=== PATIENT | male | born 1965 | race Caucasian/White ===

== ENCOUNTER 2019-12-14 09:03 | Outpatient (REF) | payer MEDICARE, MEDICAID, SELFPAY ==
[2019-12-14 10:09] LABS: MANUAL DIFF FLAG NO
[2019-12-14 10:16] LABS: Basophils Percent Auto 1.1 % (0-2); Eosinophils Absolute Auto 0.1 X10*3/uL (0.0-0.4); Eosinophils Percent Auto 1.6 % (0-4); Hemoglobin 12.8 g/dl (14.0-18.0); Imm Gran Abs Auto 0.01 X10*3/uL (0.00-0.03); Imm Gran Pct Auto 0.3 % (0.0-0.4); Mean Corpuscular HGB Conc 32.8 g/dl (31.0-36.0); Mean Corpuscular Hemoglobin 32.7 pg (27.0-33.0); Mean Corpuscular Volume 99.5 fL (80-98); Mean Platelet Volume 11.5 fL (9.4-12.4); Monocytes Absolute Auto 0.6 X10*3/uL (0.1-1.2); Neutrophils Absolute Auto 2.1 X10*3/uL (2.0-8.3); Platelet Count 141 X10*3/uL (160-400); Red Blood Count 3.92 X10*6/uL (4.60-5.80); Red Cell Distribution Width 12.1 % (11.0-16.0); White Blood Count 3.7 X10*3/uL (4.8-10.8)
[2019-12-14 11:07] LABS: Alanine Aminotransferase 95 U/L (0-40); Albumin Level 4.4 g/dL (3.5-5.0); Alkaline Phosphatase 69 U/L (39-117); Anion Gap 15 (12-20); Aspartate Amino Transferase 217 U/L (5-37); Bilirubin Total 0.7 mg/dL (0.0-1.0); Blood Urea Nitrogen 7 mg/dL (9-16); Calcium 9.2 mg/dL (8.4-10.2); Carbon Dioxide 32 mmol/L (22-29); Chloride 101 mmol/L (96-108); Cholesterol 287 mg/dL; Estimated Glomerular Filt Rate > 60; Glucose Random 87 mg/dL (60-115); HDL Cholesterol 114 mg/dL; LDL Cholesterol Calculated 156 mg/dl; Potassium 4.9 mmol/l (3.3-5.1); Sodium 143 mmol/L (135-145); Total Protein 7.9 g/dL (6.5-8.0); Triglycerides 85 mg/dL
== END 2019-12-14 09:04 | disposition home or self-care (01) ==
LOC: HO.LAB 09:03
PROVIDERS: PCP Internal Medicine; Visit Provider Internal Medicine
DX: E78.00 Pure hypercholesterolemia, unspecified (principal); F32.5 Major depressive disorder, single episode, in full remission; I10 Essential (primary) hypertension; R74.01 Elevation of levels of liver transaminase levels
CPT/HCPCS: 36415; 80053; 80061; 84443; 85025

== ENCOUNTER 2020-01-20 08:56 | Outpatient (REF) | payer MEDICARE, MEDICAID, SELFPAY | END 2020-01-20 08:57 | disposition home or self-care (01) | LOC: HO.LAB 08:56 | PROVIDERS: Visit Provider Internal Medicine | DX: Z20.828 Contact with and (suspected) exposure to other viral communicable diseases (principal) | CPT/HCPCS: C9803; U0003 ==

== ENCOUNTER 2020-05-09 12:12 | Outpatient (REF) | payer MEDICARE, MEDICAID, SELFPAY ==
[2020-05-09 13:10] LABS: MANUAL DIFF FLAG NO
[2020-05-09 13:17] LABS: Basophils Percent Auto 0.6 % (0-2); Eosinophils Absolute Auto 0.1 X10*3/uL (0.0-0.4); Eosinophils Percent Auto 1.1 % (0-4); Hematocrit 39.1 % (42-52); Hemoglobin 12.6 g/dl (14.0-18.0); Imm Gran Abs Auto 0.01 X10*3/uL (0.00-0.03); Imm Gran Pct Auto 0.1 % (0.0-0.4); Lymphocytes Absolute Auto 2.4 X10*3/uL (1.2-4.9); Lymphocytes Percent Auto 32.9 % (20-40); Mean Corpuscular HGB Conc 32.2 g/dl (31.0-36.0); Mean Corpuscular Hemoglobin 30.1 pg (27.0-33.0); Mean Corpuscular Volume 93.3 fL (80-98); Mean Platelet Volume 11.1 fL (9.4-12.4); Monocytes Absolute Auto 0.7 X10*3/uL (0.1-1.2); Monocytes Percent Auto 10.1 % (2-11); Neutrophils Absolute Auto 3.9 X10*3/uL (2.0-8.3); Neutrophils Percent Auto 55.2 % (45-73); Platelet Count 252 X10*3/uL (160-400); Red Blood Count 4.19 X10*6/uL (4.60-5.80); White Blood Count 7.1 X10*3/uL (4.8-10.8)
[2020-05-09 13:20] LABS: Prothrombin Time 12.3 SEC (10.8-13.0)
[2020-05-09 13:46] LABS: Alanine Aminotransferase 29 U/L (0-40); Albumin Level 4.3 g/dL (3.5-5.0); Alkaline Phosphatase 67 U/L (39-117); Aspartate Amino Transferase 40 U/L (5-37); Bilirubin Direct 0.3 mg/dL (0.0-0.5); Bilirubin Total 0.6 mg/dL (0.0-1.0)
[2020-05-09 13:47] LABS: Alanine Aminotransferase 31 U/L (0-40); Albumin Level 4.4 g/dL (3.5-5.0); Alkaline Phosphatase 67 U/L (39-117); Anion Gap 11 (12-20); Aspartate Amino Transferase 40 U/L (5-37); Bilirubin Total 0.6 mg/dL (0.0-1.0); Blood Urea Nitrogen 17 mg/dL (9-16); Calcium 9.9 mg/dL (8.4-10.2); Carbon Dioxide 33 mmol/L (22-29); Chloride 98 mmol/L (96-108); Cholesterol 181 mg/dL; Estimated Glomerular Filt Rate > 60; Glucose Random 105 mg/dL (60-115); HDL Cholesterol 63 mg/dL; LDL Cholesterol Calculated 103 mg/dl; Potassium 4.7 mmol/L (3.3-5.1); Sodium 137 mmol/L (135-145); Triglycerides 77 mg/dL
== END 2020-05-09 12:13 | disposition home or self-care (01) ==
LOC: HO.LAB 12:12
PROVIDERS: Absent Provider Internal Medicine; PCP Internal Medicine; Visit Provider Internal Medicine
DX: E78.00 Pure hypercholesterolemia, unspecified (principal); I10 Essential (primary) hypertension; R74.01 Elevation of levels of liver transaminase levels; K70.9 Alcoholic liver disease, unspecified; R74.8 Abnormal levels of other serum enzymes
CPT/HCPCS: 36415; 80053; 80061; 80076; 82248; 85025; 85610

== ENCOUNTER 2020-07-09 13:49 | Outpatient (REF) | payer MEDICARE, MEDICAID, SELFPAY ==
[2020-07-09 14:01] LABS: COVID-19 Test Positive (Negative)
== END 2020-07-09 13:50 | disposition home or self-care (01) ==
LOC: HO.LAB 13:49
PROVIDERS: Visit Provider Internal Medicine
DX: Z20.822 Contact with and (suspected) exposure to COVID-19 (principal)
CPT/HCPCS: 36415; 87635; C9803

== ENCOUNTER 2021-02-06 12:04 | Outpatient (REF) | payer MEDICARE, MEDICAID, SELFPAY ==
[2021-02-06 12:20] LABS: MANUAL DIFF FLAG NO
[2021-02-06 12:43] LABS: Basophils Absolute Auto 0.1 X10*3/uL (0.0-0.2); Basophils Percent Auto 0.9 % (0-2); Eosinophils Absolute Auto 0.1 X10*3/uL (0.0-0.4); Eosinophils Percent Auto 0.9 % (0-4); Hematocrit 39.3 % (42.0-52.0); Hemoglobin 12.5 g/dl (14.0-18.0); Imm Gran Abs Auto 0.02 X10*3/uL (0.00-0.03); Imm Gran Pct Auto 0.3 % (0.0-0.4); Lymphocytes Percent Auto 25.3 % (20-40); Mean Corpuscular HGB Conc 31.8 g/dl (31.0-36.0); Mean Corpuscular Hemoglobin 32.1 pg (27.0-33.0); Mean Corpuscular Volume 100.8 fL (80.0-98.0); Mean Platelet Volume 11.1 fL (9.4-12.4); Monocytes Absolute Auto 1.1 X10*3/uL (0.1-1.2); Monocytes Percent Auto 13.9 % (2-11); Neutrophils Absolute Auto 4.6 x10*3/uL (2.0-8.3); Neutrophils Percent Auto 58.7 % (45-73); Platelet Count 352 X10*3/uL (160-400); Red Cell Distribution Width 11.5 % (11.0-16.0); White Blood Count 7.8 X10*3/uL (4.8-10.8)
[2021-02-06 13:15] LABS: Alanine Aminotransferase 154 U/L (0-40); Albumin Level 4.1 g/dL (3.5-5.0); Alkaline Phosphatase 71 U/L (39-117); Anion Gap 13 (12-20); Aspartate Amino Transferase 194 U/L (5-37); Bilirubin Total 0.8 mg/dL (0.0-1.0); Blood Urea Nitrogen 22 mg/dL (9-16); Calcium 10.1 mg/dL (8.4-10.2); Carbon Dioxide 32 mmol/L (22-29); Chloride 98 mmol/L (96-108); Cholesterol 179 mg/dL; Estimated Glomerular Filt Rate > 60; Glucose Random 88 mg/dL (60-115); HDL Cholesterol 41 mg/dL; LDL Cholesterol Calculated 111 mg/dl; Potassium 4.7 mmol/L (3.3-5.1); Sodium 138 mmol/L (135-145); Total Protein 7.7 g/dL (6.5-8.0); Triglycerides 139 mg/dL
== END 2021-02-06 12:05 | disposition home or self-care (01) ==
LOC: HO.LAB 12:04
PROVIDERS: Internal Medicine; PCP Internal Medicine; Visit Provider Internal Medicine
DX: E78.00 Pure hypercholesterolemia, unspecified (principal); F10.11 Alcohol abuse, in remission; F32.5 Major depressive disorder, single episode, in full remission; I10 Essential (primary) hypertension; J30.89 Other allergic rhinitis
CPT/HCPCS: 36415; 80053; 80061; 85025

== ENCOUNTER 2022-02-10 09:35 | Outpatient (REF) | payer MEDICARE, MEDICAID, SELFPAY ==
[2022-02-10 10:49] LABS: MANUAL DIFF FLAG NO
[2022-02-10 10:54] LABS: Basophils Percent Auto 0.5 % (0-2); Eosinophils Absolute Auto 0.1 X10*3/uL (0.0-0.4); Eosinophils Percent Auto 1.3 % (0-4); Hemoglobin 11.5 g/dl (14.0-18.0); Imm Gran Abs Auto 0.02 X10*3/uL (0.00-0.03); Imm Gran Pct Auto 0.3 % (0.0-0.4); Lymphocytes Absolute Auto 2.5 X10*3/uL (1.2-4.9); Lymphocytes Percent Auto 31.4 % (20-40); Mean Corpuscular HGB Conc 32.9 g/dl (31.0-36.0); Mean Corpuscular Volume 100.6 fL (80.0-98.0); Mean Platelet Volume 12.7 fL (9.4-12.4); Monocytes Absolute Auto 1.1 X10*3/uL (0.1-1.2); Monocytes Percent Auto 13.4 % (2-11); Neutrophils Absolute Auto 4.2 x10*3/uL (2.0-8.3); Neutrophils Percent Auto 53.1 % (45-73); Platelet Count 254 X10*3/uL (160-400); Red Blood Count 3.48 X10*6/uL (4.60-5.80); Red Cell Distribution Width 11.9 % (11.0-16.0)
[2022-02-10 11:36] LABS: Alanine Aminotransferase 64 U/L (0-40); Alkaline Phosphatase 92 U/L (39-117); Anion Gap 11 (12-20); Aspartate Amino Transferase 164 U/L (5-37); Bilirubin Total 0.6 mg/dL (0.0-1.0); Blood Urea Nitrogen 7 mg/dL (9-16); Calcium 8.7 mg/dL (8.4-10.2); Carbon Dioxide 30 mmol/L (22-29); Chloride 101 mmol/L (96-108); Estimated Glomerular Filt Rate > 60; Glucose Random 71 mg/dL (60-115); Sodium 138 mmol/L (135-145); Total Protein 7.2 g/dL (6.5-8.0)
[2022-02-10 11:55] LABS: Folate 12.4 ng/mL (> or = 4.0); Vitamin B12 650 pg/mL (200-900)
== END 2022-02-10 09:36 | disposition home or self-care (01) ==
LOC: HO.10HDL 09:35
PROVIDERS: Visit Provider Internal Medicine
DX: E78.00 Pure hypercholesterolemia, unspecified (principal); F32.5 Major depressive disorder, single episode, in full remission; I10 Essential (primary) hypertension; L84 Corns and callosities; R74.01 Elevation of levels of liver transaminase levels
CPT/HCPCS: 36415; 80053; 82607; 82746; 85025

== ENCOUNTER 2022-05-21 09:22 | Outpatient (REF) | payer MEDICARE, MEDICAID, SELFPAY ==
--- NOTE | ~2022-05-21 | US_ITS ---
EXAMINATION: US COMPLETE ABDOMEN WITH LIVER ELASTOGRAPHY CLINICAL INFORMATION: Elevated LFTs. COMPARISON: None available. TECHNIQUE: Real-time imaging of the abdominal viscera. Noninvasive ultrasound liver fibrosis assessment is performed using Abraham ElastPQ point quantification shear wave elastography (2D-SWE) with a C5-2 MHz transducer. Multiple elastography samples are obtained. FINDINGS: PANCREAS: Normal. The visualized pancreatic head and body are normal in appearance. The remainder of the pancreas is obscured from visualization by the overlying bowel gas. ABDOMINAL AORTA: The proximal, middle, and distal aortic segments are normal in caliber. INFERIOR VENA CAVA: Visualized portions are normal. LIVER: The liver demonstrates normal size, scalloped contour and increased echogenicity. No focal lesion or intrahepatic biliary duct dilatation. The right lobe measures 16.2 cm in length. The left lobe measures 10.5 cm in length. Portal flow is hepatopedal. Shear wave liver elastography median stiffness is 1.76 m/s (reference: normal median stiffness is 1.3 m/s or less). IQR/median stiffness to assess sampling precision is 0.35 (reference: good quality data set is IQR/median stiffness of 0.15 or less). GALLBLADDER: The gallbladder is physiologically distended without evidence of stones, sludge, polyps or pericholecystic fluid. The gallbladder wall is slightly prominent measuring 0.21 cm. COMMON BILE DUCT: Normal in caliber measuring 0.2 cm in diameter. RIGHT KIDNEY: Normal. No hydronephrosis. No renal calculi or focal parenchymal lesions. The kidney measures 10.9 cm in maximum dimension. LEFT KIDNEY: Normal. No hydronephrosis. No renal calculi or focal parenchymal lesions. The kidney measures 11.2 cm in maximum dimension. SPLEEN: The spleen measures 13.1 cm in maximum dimension. There are small scattered tiny vascular lesions measuring 0.5 cm FREE FLUID: None. US/US abdomen comp w elastography IMPRESSION: 1. Hepatic steatosis with scalloped borders. No focal lesion. 2. Mild gallbladder wall thickening but no echogenic stones. 3. Tiny echogenic avascular lesion. 4. Liver elastography: Median liver stiffness measures 1.76 m/s corresponding to cACLD. REFERENCE: Society of Radiologists in Ultrasound Liver Stiffness Thresholds (2020): LIVER STIFFNESS THRESHOLDS: *Liver Stiffness equal or less than 1.3 m/s: High probability of being normal. *Liver Stiffness less than 1.7 m/s: In the absence of other known clinical signs, rules out compensated advanced chronic liver disease. *Liver Stiffness 1.7-2.1 m/s: Suggestive of compensated advanced chronic liver disease but need further test for confirmation. *Liver Stiffness over 2.1 m/s: Rules in compensated advanced chronic liver disease. *Liver Stiffness over 2.4 m/s: Suggestive of clinically significant portal hypertension. QUALITY OF DATA SET: *IQR/Median value equal or less than 0.15 implies a quality data set. *IQR/Median value over 0.15 implies a poor quality data set. SIGNIFICANT CHANGE FROM PRIOR EXAM: Significant change if liver stiffness measurement is 10% or greater from prior exam. OTHER CONSIDERATIONS: The stage of liver fibrosis may be overestimated in the setting of acute hepatitis, liver inflammation, elevated liver function tests, hepatic vascular congestion, obstructive cholestasis, non-fasting state, and infiltrative diseases such as amyloidosis and lymphoma. In some patients with NAFLD, the liver stiffness thresholds for compensated advanced chronic liver disease may be lower. In causes other than viral hepatitis and NAFLD, liver stiffness thresholds are not well established.
== END 2022-05-21 09:23 | disposition home or self-care (01) ==
LOC: HO.US 09:22
PROVIDERS: Visit Provider Internal Medicine
DX: R74.01 Elevation of levels of liver transaminase levels (principal)
CPT/HCPCS: 76705; 76981

== ENCOUNTER 2022-09-25 11:40 | Outpatient (REF) | payer MEDICARE, MEDICAID, SELFPAY ==
[2022-09-25 13:28] LABS: MANUAL DIFF FLAG NO
[2022-09-25 13:52] LABS: Basophils Absolute Auto 0.1 X10*3/uL (0.0-0.2); Eosinophils Absolute Auto 0.2 X10*3/uL (0.0-0.4); Eosinophils Percent Auto 3.4 % (0-4); Hematocrit 30.7 % (42.0-52.0); Hemoglobin 9.4 g/dl (14.0-18.0); Imm Gran Abs Auto 0.02 X10*3/uL (0.00-0.03); Imm Gran Pct Auto 0.3 % (0.0-0.4); Lymphocytes Absolute Auto 2.3 X10*3/uL (1.2-4.9); Lymphocytes Percent Auto 33.9 % (20-40); Mean Corpuscular HGB Conc 30.6 g/dl (31.0-36.0); Mean Corpuscular Volume 91.4 fL (80.0-98.0); Mean Platelet Volume 12.7 fL (9.4-12.4); Monocytes Percent Auto 14.3 % (2-11); Neutrophils Absolute Auto 3.2 x10*3/uL (2.0-8.3); Neutrophils Percent Auto 47.1 % (45-73); Platelet Count 315 X10*3/uL (160-400); Red Blood Count 3.36 X10*6/uL (4.60-5.80); Red Cell Distribution Width 16.2 % (11.0-16.0); White Blood Count 6.8 X10*3/uL (4.8-10.8)
[2022-09-25 14:10] LABS: Alanine Aminotransferase 32 U/L (0-40); Albumin Level 3.7 g/dL (3.5-5.0); Alkaline Phosphatase 82 U/L (39-117); Anion Gap 15 (12-20); Aspartate Amino Transferase 53 U/L (5-37); Bilirubin Total 0.5 mg/dL (0.0-1.0); Blood Urea Nitrogen 10 mg/dL (9-16); Calcium 9.5 mg/dL (8.4-10.2); Carbon Dioxide 25 mmol/L (22-29); Chloride 102 mmol/L (96-108); Estimated Glomerular Filt Rate > 60; Glucose Random 75 mg/dL (60-115); Potassium 4.7 mmol/L (3.3-5.1); Sodium 137 mmol/L (135-145); Total Protein 8.2 g/dL (6.5-8.0)
[2022-09-25 14:25] LABS: Ferritin 167 ng/mL (20-250)
== END 2022-09-25 11:41 | disposition home or self-care (01) ==
LOC: HO.10HDL 11:40
PROVIDERS: Visit Provider Internal Medicine
DX: D50.0 Iron deficiency anemia secondary to blood loss (chronic) (principal); E87.1 Hypo-osmolality and hyponatremia; I81 Portal vein thrombosis; I85.01 Esophageal varices with bleeding; K70.30 Alcoholic cirrhosis of liver without ascites
CPT/HCPCS: 36415; 80053; 82728; 85025

== ENCOUNTER 2022-12-23 11:34 | Outpatient (REF) | payer MEDICARE, MEDICAID, SELFPAY ==
[2022-12-23 13:39] LABS: MANUAL DIFF FLAG NO
[2022-12-23 13:47] LABS: Basophils Percent Auto 0.6 % (0-2); Eosinophils Absolute Auto 0.1 X10*3/uL (0.0-0.4); Eosinophils Percent Auto 1.3 % (0-4); Hematocrit 31.7 % (42.0-52.0); Hemoglobin 10.1 g/dl (14.0-18.0); Imm Gran Abs Auto 0.02 X10*3/uL (0.00-0.03); Imm Gran Pct Auto 0.3 % (0.0-0.4); Lymphocytes Absolute Auto 2.1 X10*3/uL (1.2-4.9); Lymphocytes Percent Auto 30.6 % (20-40); Mean Corpuscular HGB Conc 31.9 g/dl (31.0-36.0); Mean Corpuscular Hemoglobin 28.3 pg (27.0-33.0); Mean Corpuscular Volume 88.8 fL (80.0-98.0); Mean Platelet Volume 12.1 fL (9.4-12.4); Monocytes Absolute Auto 0.8 X10*3/uL (0.1-1.2); Monocytes Percent Auto 11.8 % (2-11); Neutrophils Absolute Auto 3.8 x10*3/uL (2.0-8.3); Neutrophils Percent Auto 55.4 % (45-73); Platelet Count 262 X10*3/uL (160-400); Red Blood Count 3.57 X10*6/uL (4.60-5.80); Red Cell Distribution Width 14.8 % (11.0-16.0); White Blood Count 6.8 X10*3/uL (4.8-10.8)
[2022-12-23 14:24] LABS: Alanine Aminotransferase 39 U/L (0-40); Albumin Level 3.8 g/dL (3.5-5.0); Alkaline Phosphatase 78 U/L (39-117); Anion Gap 14 (12-20); Aspartate Amino Transferase 63 U/L (5-37); Bilirubin Total 0.8 mg/dL (0.0-1.0); Blood Urea Nitrogen 9 mg/dL (9-16); Calcium 9.8 mg/dL (8.4-10.2); Carbon Dioxide 26 mmol/L (22-29); Chloride 105 mmol/L (96-108); Estimated Glomerular Filt Rate > 60; Glucose Random 107 mg/dL (60-115); Potassium 3.9 mmol/L (3.3-5.1); Sodium 141 mmol/L (135-145); Total Protein 8.3 g/dL (6.5-8.0)
== END 2022-12-23 11:35 | disposition home or self-care (01) ==
LOC: HO.10HDL 11:34
PROVIDERS: Visit Provider Internal Medicine
DX: D50.0 Iron deficiency anemia secondary to blood loss (chronic) (principal); F10.11 Alcohol abuse, in remission; I85.01 Esophageal varices with bleeding; K70.30 Alcoholic cirrhosis of liver without ascites
CPT/HCPCS: 36415; 80053; 85025

== ENCOUNTER 2023-01-28 10:42 | Emergency (ER) | payer MEDICARE, MEDICAID, SELFPAY ==
--- NOTE | ~2023-01-28 | XR_ITS ---
EXAMINATION: XR CERVICAL SPINE CLINICAL INFORMATION: Neck pain. COMPARISON: Cervical spine CT dated 07/06/2012. TECHNIQUE: 3 views of the cervical spine were obtained. FINDINGS: Straightening of the normal cervical lordosis which may be positional or related to muscular spasm. No acute fracture or subluxation. No loss of vertebral body or intervertebral disc height. Small anterior endplate osteophytes at C5-C6 and C6-C7, unchanged. Dystrophic ossification redemonstrated within the posterior soft tissues. Normal atlantoaxial alignment. No concerning lytic or blastic osseous lesion. Unremarkable prevertebral soft tissues. XR/XR cervical spine 3V IMPRESSION: 1. Straightening of the normal cervical lordosis which may be positional or related to muscular spasm. 2. Mild degenerative disc disease at C5-C6 and C6-C7, unchanged.
--- NOTE | 2023-01-28 11:04 | ED.GENADULT ---
HPI - General Adult General Chief complaint: Neck Pain/Injury Stated complaint: Neck & arm pain Time Seen by Provider: 01/28/23 11:33 Source: patient Mode of arrival: ambulatory Limitations: no limitations History of Present Illness HPI narrative: Patient is a 57-year-old male presenting to the emergency department with complaint of right lateral neck pain and shoulder pain for the past 3 days. States symptoms began after doing a significant amount of dry walling at his home. States pain is worse with movement. He has taken ibuprofen with little relief. Denies any numbness or tingling to his arm or hand. Denies any chest pain or shortness of breath, palpitations. Denies any fall or other injury. Denies headaches. Denies fevers. MD complaint: Neck and shoulder pain Onset (ago): day(s) Location: neck, right and upper extremity Radiation: non-radiation Severity: severe Quality: aching Pain Consistency: constant Relieving factors: none Exacerbating factors: movement Associated symptoms: denies other symptoms Treatments prior to arrival: NSAID Related Data Previous Rx's Medication Instructions Recorded cyclobenzaprine 5 mg tablet 5 mg PO TID PRN muscle spasm #10 01/28/23 tabs ibuprofen 600 mg tablet 600 mg PO Q6H PRN pain #20 tabs 01/28/23 lidocaine 5 % topical patch 1 patch topical DAILY #15 ea 01/28/23 Allergies Allergy/AdvReac Type Severity Reaction Status Date / Time No Known Allergies Allergy Verified 01/28/23 11:04 [employer] Allergy Unknown COUGH Uncoded 11/26/18 00:00 Review of Systems Review of Systems: As per MDM. Yes all other systems are reviewed and are negative Constitutional: Constitutional: Reports as per HPI [facility] Social History Social History Smoked in Last 30 Days: No Use of substances other than those prescribed or required for medical reasons: No Advance Directives: No Advance Directives Information Provided: No Physical Exam ED Vital Signs: Vital Signs - 24 hr 01/28/23 11:05 Temperature 98 F Pulse Rate 55 Respiratory Rate 19 Blood Pressure 145/85 H Pulse Oximetry 98 Oxygen Delivery Method Room Air BMI result Body Mass Index 29.0 Vital signs have been reviewed and appear to be correct. Blood pressure elevated. Heart rate normal. Respiratory rate normal. Temperature normal. Oxygen saturation normal. Const General: cooperative, healthy appearing and no acute distress Orientation/consciousness: oriented to person, oriented to place, oriented to time and patient oriented x3 Limitations: no limitations HENMT Head: Yes normocephalic and Yes atraumatic Ears: external ears normal General nose exam: Normal external nose present Face and sinus: Yes face symmetric Mouth: oropharynx normal and moist mucous membranes Throat: Yes uvula midline Eyes Pupils: Equal, round and reactive pupils present Neck Neck: Yes normal visual inspection, Yes full ROM, Yes no lymphadenopathy, Yes no meningeal signs, Yes trachea midline, Yes supple and No anterior neck swelling Resp Effort & Inspection: normal respiratory effort and able to speak in complete sentences Auscultation: clear to auscultation bilaterally Cardio Rate: regular rate Rhythm: regular rhythm Heart sounds: S1 normal heart sound present and S2 normal heart sound present GI Palpation (GI): Soft to palpation and nontender Auscultation: normoactive bowel sounds General: Yes no CVA tenderness Back/Spine/Pelvis Back: no CVA tenderness Cervical Spine: normal cervical lordosis, cervical ROM normal, cervical muscular tenderness (right lateral), pain with cervical ROM (Lateral rotation), No Cervical spine tenderness and No step off deformity Thoracic/Lumbar Spine: thoracic and lumbar spine normal to inspection, thoraco-lumbar ROM normal, No thoracic spinal tenderness and No lumbar spinal tenderness Skin General skin exam: elasticity normal and turgor normal Neuro General: oriented to person, oriented to place, oriented to time, patient oriented x3, moves all extremities, no meningeal signs, no focal motor deficits and CN's II-XI intact bilaterally Cranial nerves: Yes Equal, round and reactive pupils present Cognition (Neuro): normal cognition Extrem General: Yes full ROM, Yes no pedal edema and Yes no calf tenderness Right upper extremity: shoulder/upper arm Details: normal to inspection, tenderness (over trapezius), axillary nerve sensory function normal and normal ROM and wrist Details: radial pulse present Psych Mental Status: mental status grossly normal Affect: normal affect Thought process: Normal thought process present Course Course Course Narrative: This is an RME: Additional HPI, ROS, PE not included below will be deferred to primary provider. This is a [id number]-male, with a hx of ?, presenting to the emergency department with a complaint of neck and right arm pain x 3 days. Pt states that he has been doing dry wall over the last several days and has had worsening pain. Limited ROM of the neck secondary to pain. TTP over the paraspinous muscles and trapezius muscles Plan: XR c-spine ordered. Medical Decision Making Medical Decision Making [facility] Narrative: Patient is a 57-year-old male presenting to the emergency department with complaint of right lateral neck pain and shoulder pain for the past 3 days. On exam patient is awake, A+Ox3, VS WNL, afebrile, normal neurological exam without focal deficits, physical exam findings as above. Given reported symptoms and physical exam findings, initial differential includes cervical muscle strain, cervical radiculopathy, degenerative disease. No red flag findings concerning for cauda equina, spinal epidural abscess, cord compression. X-ray notable for mild degenerative disc disease, no other acute abnormalities. My interpretation is in agreement with the radiologist's interpretation. Given reported history and physical exam findings, will treat for cervical muscle strain with cyclobenzaprine, topical lidocaine patches, ibuprofen. Instructed patient to follow-up with primary care provider this week. Return precautions discussed at bedside. Patient verbalized understanding of and agreement with plan. Differential Diagnosis Differential Diagnoses: The differential diagnosis associated with the presentation includes As per [facility] Independent Interpretation I performed an independent interpretation of an: Plain X-Ray Interpretation: Mild DDD C5/6, C6/7 Radiology Impression Discussion of test interpretation with radiology: I have reviewed the radiologist's reading. Radiologist Impression: XR/XR cervical spine 3V IMPRESSION: 1. Straightening of the normal cervical lordosis which may be positional or related to muscular spasm. 2. Mild degenerative disc disease at C5-C6 and C6-C7, unchanged. External Record Review External record reviewed: Inpatient record, Office record and Outpatient record Prescription Management I considered prescription management with: Pain Medication and Other Discharge Plan Discharge Clinical Impression: Cervical muscle strain Patient Disposition: Home, Self-Care Instructions: Cervical Strain (DC) Additional Instructions: You were evaluated in the emergency department with complaint of neck pain. Your imaging did not show any evidence of a fracture or other concerning findings. Your pain is likely related to a muscle strain. We recommend taking 600mg ibuprofen or 650mg Tylenol. If necessary, you can alternate these medications every three hours. For example, at noon take Tylenol, then at 3:00 take ibuprofen, then at 6:00 take Tylenol, etc. You are also being prescribed a muscle relaxer which you can use up to every 8 hours as needed. You are also being prescribed topical lidocaine patches which you can wear for up to 12 hours in a 24 hour period, do not apply heat directly over the patches. You should follow up with your primary care provider as you may require physical therapy to improve your symptoms. Return to the emergency department if you develop worsening neck pain or stiffness, new weakness, numbness, or tingling to your arm, severe headaches, or any other concerning symptoms. Prescriptions: New cyclobenzaprine 5 mg tablet 5 mg PO TID PRN (Reason: muscle spasm) Qty: 10 0RF ibuprofen 600 mg tablet 600 mg PO Q6H PRN (Reason: pain) Qty: 20 0RF lidocaine 5 % adhesive patch,medicated 1 patch topical DAILY Qty: 15 0RF Rx Instructions: leave on most painful area for up to 12 hrs
[2023-01-28 11:05] VITALS: BP 145/85; PULSE 55; RESP 19; TEMP 36.6; O2SAT 98; BMI 29.0
== END 2023-01-28 13:25 | disposition home or self-care (01) ==
PROVIDERS: Emergency Provider Emergency Medicine; PCP Internal Medicine
DX: M54.2 Cervicalgia (principal); M25.511 Pain in right shoulder; Z79.899 Other long term (current) drug therapy
CPT/HCPCS: 72040; 99283; 99284

== ENCOUNTER 2023-04-08 13:56 | Outpatient (REF) | payer OTHER, MEDICAID, SELFPAY ==
[2023-04-08 14:24] LABS: MANUAL DIFF FLAG NO
[2023-04-08 14:26] LABS: Basophils Percent Auto 0.4 % (0-2); Eosinophils Absolute Auto 0.1 X10*3/uL (0.0-0.4); Eosinophils Percent Auto 1.8 % (0-4); Hematocrit 30.7 % (42.0-52.0); Hemoglobin 9.7 g/dl (14.0-18.0); Imm Gran Abs Auto 0.02 X10*3/uL (0.00-0.03); Imm Gran Pct Auto 0.3 % (0.0-0.4); Lymphocytes Absolute Auto 3.1 X10*3/uL (1.2-4.9); Lymphocytes Percent Auto 40.5 % (20-40); Mean Corpuscular HGB Conc 31.6 g/dl (31.0-36.0); Mean Corpuscular Hemoglobin 26.6 pg (27.0-33.0); Mean Corpuscular Volume 84.3 fL (80.0-98.0); Mean Platelet Volume 10.8 fL (9.4-12.4); Monocytes Percent Auto 12.5 % (2-11); Neutrophils Absolute Auto 3.5 x10*3/uL (2.0-8.3); Neutrophils Percent Auto 44.5 % (45-73); Platelet Count 252 X10*3/uL (160-400); Red Blood Count 3.64 X10*6/uL (4.60-5.80); Red Cell Distribution Width 13.1 % (11.0-16.0); White Blood Count 7.8 X10*3/uL (4.8-10.8)
[2023-04-08 14:31] LABS: INTERNATIONAL NORM RATIO 1.1 (0.9-1.1); Prothrombin Time 12.9 SEC (11.1-13.3)
[2023-04-08 14:36] LABS: Ammonia 76 umol/L (13-55)
[2023-04-08 14:43] LABS: Alanine Aminotransferase 29 U/L (0-40); Alkaline Phosphatase 87 U/L (39-117); Aspartate Amino Transferase 43 U/L (5-37); Bilirubin Direct 0.2 mg/dL (0.0-0.5); Bilirubin Total 0.3 mg/dL (0.0-1.0); Total Protein 8.2 g/dL (6.5-8.0)
[2023-04-08 14:50] LABS: Alanine Aminotransferase 29 U/L (0-40); Albumin Level 3.9 g/dL (3.5-5.0); Alkaline Phosphatase 88 U/L (39-117); Anion Gap 10 (12-20); Aspartate Amino Transferase 46 U/L (5-37); Bilirubin Total 0.3 mg/dL (0.0-1.0); Blood Urea Nitrogen 16 mg/dL (9-16); Calcium 9.7 mg/dL (8.4-10.2); Carbon Dioxide 30 mmol/L (22-29); Chloride 104 mmol/L (96-108); Cholesterol 146 mg/dL (<200); Estimated Glomerular Filt Rate > 60; Glucose Random 99 mg/dL (60-115); HDL Cholesterol 66 mg/dL (>40); LDL Cholesterol Calculated 57 mg/dL (<100); Potassium 4.6 mmol/L (3.3-5.1); Sodium 139 mmol/L (135-145); Total Protein 8.2 g/dL (6.5-8.0); Triglycerides 115 mg/dL (<150)
[2023-04-08 15:05] LABS: Ferritin 17 ng/mL (20-250)
[2023-04-08 15:22] LABS: Folate > 20.0 ng/mL (> or = 4.0); Prostate Specific Antigen Scr 0.25 ng/mL (<0.05-4.0); Vitamin B12 647 pg/mL (200-900)
[2023-04-09 13:39] LABS: Alpha Fetoprotein 3.1 ng/mL (<6.1)
== END 2023-04-08 13:57 | disposition home or self-care (01) ==
LOC: HO.LAB 13:56
PROVIDERS: Internal Medicine; PCP Internal Medicine; Referring Provider Internal Medicine; Visit Provider Internal Medicine
DX: Z12.5 Encounter for screening for malignant neoplasm of prostate (principal); R74.8 Abnormal levels of other serum enzymes; I85.11 Secondary esophageal varices with bleeding; K76.82 Hepatic encephalopathy; K70.30 Alcoholic cirrhosis of liver without ascites
CPT/HCPCS: 36415; 80053; 80061; 80076; 82105; 82140; 82607; 82728; 82746; 84153; 85025; 85610

== ENCOUNTER 2023-08-05 11:45 | Outpatient (REF) | payer MEDICARE, MEDICAID, SELFPAY ==
[2023-08-05 13:08] LABS: MANUAL DIFF FLAG NO
[2023-08-05 13:12] LABS: Basophils Percent Auto 0.7 % (0-2); Eosinophils Absolute Auto 0.2 X10*3/uL (0.0-0.4); Eosinophils Percent Auto 2.7 % (0-4); Hematocrit 30.2 % (42.0-52.0); Imm Gran Abs Auto 0.01 X10*3/uL (0.00-0.03); Imm Gran Pct Auto 0.2 % (0.0-0.4); Lymphocytes Percent Auto 35.3 % (20-40); Mean Corpuscular HGB Conc 33.1 g/dl (31.0-36.0); Mean Corpuscular Hemoglobin 28.2 pg (27.0-33.0); Mean Corpuscular Volume 85.3 fL (80.0-98.0); Mean Platelet Volume 12.5 fL (9.4-12.4); Monocytes Absolute Auto 0.6 X10*3/uL (0.1-1.2); Monocytes Percent Auto 9.9 % (2-11); Neutrophils Absolute Auto 2.8 x10*3/uL (2.0-8.3); Neutrophils Percent Auto 51.2 % (45-73); Platelet Count 160 X10*3/uL (160-400); Red Blood Count 3.54 X10*6/uL (4.60-5.80); Red Cell Distribution Width 13.9 % (11.0-16.0); White Blood Count 5.5 X10*3/uL (4.8-10.8)
== END 2023-08-05 11:46 | disposition home or self-care (01) ==
LOC: HO.10HDL 11:45
PROVIDERS: Visit Provider Internal Medicine
DX: Z00.01 Encounter for general adult medical examination with abnormal findings (principal); D50.0 Iron deficiency anemia secondary to blood loss (chronic); F10.21 Alcohol dependence, in remission; K70.30 Alcoholic cirrhosis of liver without ascites
CPT/HCPCS: 36415; 85025

== ENCOUNTER 2023-11-11 13:33 | Outpatient (REF) | payer MEDICARE, MEDICAID, SELFPAY ==
[2023-11-11 14:01] LABS: MANUAL DIFF FLAG NO
[2023-11-11 14:09] LABS: Basophils Percent Auto 0.4 % (0-2); Eosinophils Absolute Auto 0.2 X10*3/uL (0.0-0.4); Eosinophils Percent Auto 2.1 % (0-4); Hematocrit 36.3 % (42.0-52.0); Hemoglobin 12.1 g/dl (14.0-18.0); INTERNATIONAL NORM RATIO 1.1 (0.9-1.1); Imm Gran Abs Auto 0.01 X10*3/uL (0.00-0.03); Imm Gran Pct Auto 0.1 % (0.0-0.4); Lymphocytes Absolute Auto 2.6 X10*3/uL (1.2-4.9); Lymphocytes Percent Auto 34.9 % (20-40); Mean Corpuscular HGB Conc 33.3 g/dl (31.0-36.0); Mean Corpuscular Hemoglobin 29.2 pg (27.0-33.0); Mean Corpuscular Volume 87.7 fL (80.0-98.0); Mean Platelet Volume 11.3 fL (9.4-12.4); Monocytes Absolute Auto 0.8 X10*3/uL (0.1-1.2); Monocytes Percent Auto 10.5 % (2-11); Neutrophils Absolute Auto 3.9 x10*3/uL (2.0-8.3); Platelet Count 212 X10*3/uL (160-400); Red Blood Count 4.14 X10*6/uL (4.60-5.80); White Blood Count 7.5 X10*3/uL (4.8-10.8)
[2023-11-11 14:13] LABS: Ammonia 53 umol/L (13-55)
[2023-11-11 15:12] LABS: Alanine Aminotransferase 32 U/L (0-40); Alkaline Phosphatase 72 U/L (39-117); Aspartate Amino Transferase 41 U/L (5-37); Bilirubin Direct 0.2 mg/dL (0.0-0.5); Bilirubin Total 0.4 mg/dL (0.0-1.0); Total Protein 7.6 g/dL (6.5-8.0)
[2023-11-13 12:43] LABS: Alpha Fetoprotein 2.2 ng/mL (<6.1)
== END 2023-11-11 13:34 | disposition home or self-care (01) ==
LOC: HO.LAB 13:33
PROVIDERS: PCP Internal Medicine; Visit Provider Internal Medicine
DX: K70.9 Alcoholic liver disease, unspecified (principal)
CPT/HCPCS: 36415; 80076; 82105; 82140; 85025; 85610

== ENCOUNTER 2023-11-17 09:03 | Outpatient (REF) | payer MEDICARE, MEDICAID, SELFPAY ==
--- NOTE | ~2023-11-17 | US_ITS ---
EXAMINATION: US COMPLETE ABDOMEN WITH LIVER ELASTOGRAPHY CLINICAL INFORMATION: Alcoholic cirrhosis with ascites. COMPARISON: None available. TECHNIQUE: Real-time imaging of the abdominal viscera. Noninvasive ultrasound liver fibrosis assessment is performed using Abraham ElastPQ point quantification shear wave elastography (pSWE) with a C5-2 MHz transducer. Multiple elastography samples are obtained. FINDINGS: PANCREAS: Normal. The visualized pancreatic head and body are normal in appearance. The remainder of the pancreas is obscured from visualization by the overlying bowel gas. ABDOMINAL AORTA: The proximal, middle, and distal aortic segments are normal in caliber. INFERIOR VENA CAVA: Visualized portions are normal. LIVER: The liver is not enlarged. There is marked heterogeneity and increased echogenicity with nodular borders consistent with cirrhosis. No focal lesion or intrahepatic biliary duct dilatation. The right lobe measures 14.5 cm in length. The left lobe measures 10.4 cm in length. Portal flow is towards the liver (hepatopetal). Shear wave liver elastography median stiffness is 1.88 m/s (reference: normal median stiffness is 1.3 m/s or less). Previously this value was 1.76. IQR/median stiffness to assess sampling precision is 0.16 (reference: good quality data set is IQR/median stiffness of 0.15 or less). Previously this value was 0.35. GALLBLADDER: The gallbladder is physiologically distended without evidence of stones, sludge, polyps, wall thickening or pericholecystic fluid. COMMON BILE DUCT: Normal in caliber measuring 0.4 cm in diameter. RIGHT KIDNEY: Normal. No hydronephrosis. No renal calculi or focal parenchymal lesions. The kidney measures 11.6 cm in maximum dimension. LEFT KIDNEY: Normal. No hydronephrosis. No renal calculi or focal parenchymal lesions. The kidney measures 10.9 cm in maximum dimension. SPLEEN: The spleen is enlarged measuring 13.5 cm in maximum dimension. Multiple splenic rounded hyperechoic lesions are seen, possibly hemangiomas. FREE FLUID: None. US/US abdomen comp w elastography IMPRESSION: 1. Cirrhotic appearing liver. 2. Liver elastography: Although measurements appear consistent with compensated advanced chronic liver disease, there is statistical variability of the sampling which decreases accuracy. Liver stiffness measurement is without significant change from prior exam (change under 10%). REFERENCE: Society of Radiologists in Ultrasound Liver Stiffness Thresholds (2019): LIVER STIFFNESS THRESHOLDS: *Liver Stiffness equal or less than 1.3 m/s: High probability of being normal. *Liver Stiffness less than 1.7 m/s: In the absence of other known clinical signs, rules out compensated advanced chronic liver disease. *Liver Stiffness 1.7-2.1 m/s: Suggestive of compensated advanced chronic liver disease but need further test for confirmation. *Liver Stiffness over 2.1 m/s: Rules in compensated advanced chronic liver disease. *Liver Stiffness over 2.4 m/s: Suggestive of clinically significant portal hypertension. QUALITY OF DATA SET: *IQR/Median value equal or less than 0.15 implies a quality data set. *IQR/Median value over 0.15 implies a poor quality data set. SIGNIFICANT CHANGE FROM PRIOR EXAM: Significant change if liver stiffness measurement is 10% or greater from prior exam. OTHER CONSIDERATIONS: The stage of liver fibrosis may be overestimated in the setting of acute hepatitis, liver inflammation, elevated liver function tests, hepatic vascular congestion, obstructive cholestasis, non-fasting state, and infiltrative diseases such as amyloidosis and lymphoma. In some patients with NAFLD, the liver stiffness thresholds for compensated advanced chronic liver disease may be lower. In causes other than viral hepatitis and NAFLD, liver stiffness thresholds are not well established. Electronically signed by: Riaz Barajas MD 11/18/2023 06:00 PM EDT
== END 2023-11-17 09:04 | disposition home or self-care (01) ==
LOC: HO.US 09:03
PROVIDERS: PCP Internal Medicine; Visit Provider Internal Medicine
DX: K70.30 Alcoholic cirrhosis of liver without ascites (principal); K70.9 Alcoholic liver disease, unspecified
CPT/HCPCS: 76700; 76981

== ENCOUNTER 2024-02-09 12:36 | Outpatient (REF) | payer MEDICARE, MEDICAID, SELFPAY ==
[2024-02-09 13:06] LABS: MANUAL DIFF FLAG NO
[2024-02-09 13:14] LABS: Basophils Percent Auto 0.4 % (0-2); Eosinophils Absolute Auto 0.2 X10*3/uL (0.0-0.4); Eosinophils Percent Auto 2.6 % (0-4); Hematocrit 37.2 % (42.0-52.0); Hemoglobin 12.2 g/dl (14.0-18.0); Imm Gran Abs Auto 0.02 X10*3/uL (0.00-0.03); Imm Gran Pct Auto 0.3 % (0.0-0.4); Lymphocytes Absolute Auto 2.2 X10*3/uL (1.2-4.9); Lymphocytes Percent Auto 31.8 % (20-40); Mean Corpuscular HGB Conc 32.8 g/dl (31.0-36.0); Mean Corpuscular Hemoglobin 29.1 pg (27.0-33.0); Mean Corpuscular Volume 88.8 fL (80.0-98.0); Mean Platelet Volume 11.6 fL (9.4-12.4); Monocytes Absolute Auto 0.7 X10*3/uL (0.1-1.2); Monocytes Percent Auto 10.5 % (2-11); Neutrophils Absolute Auto 3.7 x10*3/uL (2.0-8.3); Neutrophils Percent Auto 54.4 % (45-73); Platelet Count 230 X10*3/uL (160-400); Red Blood Count 4.19 X10*6/uL (4.60-5.80); Red Cell Distribution Width 12.5 % (11.0-16.0); White Blood Count 6.9 X10*3/uL (4.8-10.8)
[2024-02-09 13:29] LABS: Alanine Aminotransferase 26 U/L (0-40); Albumin Level 3.9 g/dL (3.5-5.0); Alkaline Phosphatase 62 U/L (39-117); Anion Gap 12 (12-20); Aspartate Amino Transferase 41 U/L (5-37); Bilirubin Total 0.5 mg/dL (0.0-1.0); Blood Urea Nitrogen 10 mg/dL (9-16); Calcium 9.3 mg/dL (8.4-10.2); Carbon Dioxide 31 mmol/L (22-29); Chloride 104 mmol/L (96-108); Estimated Glomerular Filt Rate > 60; Glucose Random 96 mg/dL (60-115); Potassium 3.9 mmol/L (3.3-5.1); Sodium 143 mmol/L (135-145); Total Protein 7.5 g/dL (6.5-8.0)
--- OUTSIDE RECORDS SUMMARY | 2024-02-10 21:11 | XMS_ITS ---
Author Organization [facility] Address [address] [place] [address] Care Team Providers Care Agricultural Researcher Name Role Phone Ana Mercado Primary Care Provider Unavailab Kelechi Srivastava Unavailable [phone] ALLERGIES No Known Allergies RESULTS Component Value Reference Range Notes Prothrombin Time INR Reviewed date:04/08/2023 06:24:09 PM Interpretation: Performing Lab:[facility], [address] [place] [id number] Notes/Report: Prothrombin Time 12.9 11.1-13.3 SEC INTERNATIONAL NORM RATIO 1.1 0.9-1.1 INTERNATIONAL NORMALIZED RATIO (INR) REFERENCE RANGES Reference Range For patients not on anticoagulant therapy: 0.9 - 1.1 INR ranges for oral anticoagulant therapy: For prevention and treatment of venous thrombosis and pulmonary embolism: 2.0 - 3.0 For acute myocardial infarction with aspirin therapy: 2.0 - 3.0 For acute myocardial infarction without aspirin therapy: 3.0 - 4.0 For patients with mechanical prosthetic heart valves: 2.5 - 3.5 Ammonia Reviewed date:04/08/2023 06:24:01 PM Interpretation: Performing Lab:[address] [id number] Notes/Report: Ammonia 76 13-55 umol/L REASON FOR VISIT Patient presents today for a liver ds MEDICATIONS Medication SIG (Take, Route, Frequency, Duration) Notes Start Date End Date Status Losartan Potassium 100 MG TAKE 1 TABLET BY MOUTH EVERY DAY Oral for 90 Active Furosemide 40 MG TAKE 1 TABLET BY MERE TH DAILY Oral for 90 Active Valsartan 160 MG TAKE 2 TABLETS BY MO UTH EVERY DAY Oral for 30 Active Folic Acid 1 MG TAKE 1 TABLET BY MERE TH DAILY Oral for 90 Active B-1 100 MG TAKE 1 TABLET BY MERE TH ONCE DAILY Oral for 90 Active Propranolol HCl 20 MG TAKE 1 TABLET BY M OUTH TWICE DAILY Oral for 90 Active Rosuvastatin Calcium 10 MG TAKE 1 TABLET BY MOUTH EVERY DAY Oral for 90 Active Pantoprazole Sodium 40 MG TAKE 1 TABLET BY MOUTH TWICE DAILY Oral for 90 Active Acamprosate Calcium 333 MG TAKE 2 TABLET S BY MOUTH THREE TIMES DAILY Oral for 30 Active Valsartan-hydroCHLOROthiazid e 320-25 MG take 1 tablet by mouth once daily Oral for 90 Active Atorvastatin Calcium 20 MG take 1 tablet by mouth at bedtime Oral for 90 Active Naltrexone HCl 50 MG TAKE 1 TABLET BY MO UTH EVERY DAY Orally Once a day Active Spironolactone 50 MG TAKE 1 TABLET BY MO UTH DAILY Oral for 90 Active amLODIPine Besylate 5 MG TAKE 1 TABLET B Y MOUTH EVERY DAY Oral for 90 Active Sertraline HCl 100 MG take 1 tablet by m outh once daily Orally Once a day Active SOCIAL HISTORY Tobacco Use: Social History Observation Description Date Details (start date - stop date) Never Smoker NA - NA Sex Assigned At : Social History Observation Description Sex Assigned At Unknown Tobacco Use/Smoking Question Answer Notes Patient is a nonsmoker Alcohol Screen Question Answer Notes Did you have a drink containing alcohol in the p ast year? No Points 0 Interpretation Negative PROBLEMS Problem Type ICD Code Onset Dates Problem Status W/U Status Risk SNOMED Code Notes Problem Secondary esophageal varices with bleeding (I85.11) Active confirmed 20731440 Problem Hepatic encephalopathy (K76.82) Active confirmed 91077120 Problem Alcoholic cirrhosis of liver without ascites (K70.30) Active confirmed 231331574 VITAL SIGNS BMI 30.54 kg/m2 04/08/2023 Blood pressure systolic 00 mm Hg 04/08/19 24 Blood pressure diastolic 00 mm Hg 024 Height 67 in 04/08/2023 Temperature 97.8 degrees Fahrenheit 04/08/19 24 Weight 195 lbs 04/08/2023 Encounters Encounter Location Date Provider Diagnosis [facility] [address] [place] [address] 04/08/2023 Kelechi Evangelista Alcoholic liver dise ase K70.9 ; Elevated liver enzymes R74.8 ; Secondary esophageal varices with bleeding I85.11 ; Hepatic encephalopathy K76.82 and Alcoholic cirrhosis of liver without ascites K70.30 ASSESSMENTS Encounter Date Diagnosis Assessment Notes Treatment Notes Treatment Clinical Notes 04/08/2023 Alcoholic liver disease (ICD-10 - K70.9) 04/08/2023 Elevated liver enzymes (ICD-10 - R74.8) 04/08/2023 Secondary esophageal varices with bleeding (ICD-10 - I85.11) 04/08/2023 Hepatic encephalopathy (ICD-10 - K76.82) 04/08/2023 Alcoholic cirrhosis of liver without ascites (ICD-10 - K70.30) PLAN OF TREATMENT Pending Test Test Name Order Date LIVER PROFILE 04/08/2023 CBC w DIFF 04/08/2023 ALPHA-FETOPROTEIN,TUMOR MARKER Next Appt Details Follow Up: 2023, Roya n: Provider Name:Kelechi Evangelista , 11/09/2024 01:00:00 PM, [address], [address], [place], [address], Progress Notes * Examination Category Sub-Category Detail Notes General Examination GENERAL APPEARANCE: pleasant , well nourished, well developed, in no acute distress HEAD: EYES: sclera non-icteric EARS: NOSE: THROAT: NECK/THYROID: no cervical lymphade nopathy, neck supple HEART: S1, S2 normal CHEST: LUNGS: clear to auscultatio n bilaterally ABDOMEN: normal bowel sounds, no guarding or rigidity, no guarding or rigidity, no masses palpable, soft, nontender, nondistended NEUROLOGIC: alert and oriented SKIN: nonjaundiced, no spi fernanda angiomata EXTREMITIES: no edema PERIPHERAL PULSES: BACK: BREASTS: MUSCULOSKELETAL: MALE GENITOURINARY: LYMPH NODES: RECTAL EXAM: FEMALE GENITOURINARY: ORAL CAVITY: mucosa moist
--- OUTSIDE RECORDS SUMMARY | 2024-02-10 21:11 | XMS_ITS ---
Author Organization [facility] Address [address] [place] [address] Care Team Providers Care Financial Sales Associate Name Role Phone Ana Mercado Primary Care Provider Unavailab Kelechi Srivastava Unavailable [phone] ALLERGIES No Known Allergies RESULTS Component Value Reference Range Notes Prothrombin Time INR Reviewed date:11/11/2023 05:24:02 PM Interpretation: Performing Lab:[facility], [address] [place] [phone] Notes/Report: Prothrombin Time 13.0 11.1-13.3 SEC INTERNATIONAL NORM RATIO 1.1 0.9-1.1 [...] heart valves: 2.5 - 3.5 Ammonia Reviewed date:11/11/2023 05:22:00 PM Interpretation: Performing Lab:[facility], [address] [place] [phone] Notes/Report: Ammonia 53 13-55 umol/L US abdomen comp w elastograp hy Reviewed date:11/22/2023 08:08:11 PM Interpretation: Performing Lab: Notes/Report: [address] [address] Ultrasound Report Signed Patient: Michelet Ahuja MR#: [id number] : 1965 Acct:[id number] Age/Sex: 58 / M ADM Date: 11/17/23 Loc: HO.US Attending Dr: Kelechi Evangelista MD Ordering Physician: Kelechi Evangelista MD Date of Service: 11/17/23 Procedure(s): US abdomen comp w elastography Accession Number(s): [id number] cc: Ana Mercado MD; Kelechi Evangelista MD EXAMINATION: US COMPLETE ABDOMEN WITH LIVER ELASTOGRAPHY CLINICAL INFORMATION: Alcoholic cirrhosis with ascites. COMPARISON: None available. TECHNIQUE: Real-time imaging of the abdominal viscera. Noninvasive ultrasound liver fibrosis assessment is performed using Abraham ElastPQ point quantification shear wave elastography (pSWE) with a C5-2 MHz transducer. Multiple elastography samples are obtained. FINDINGS: PANCREAS: Normal. The visualized pancreatic head and body are normal in appearance. The remainder of the pancreas is obscured from visualization by the overlying bowel gas. ABDOMINAL AORTA: The proximal, middle, and distal aortic segments are normal in caliber. INFERIOR VENA CAVA: Visualized portions are normal. LIVER: The liver is not enlarged. There is marked heterogeneity and increased echogenicity with nodular borders consistent with cirrhosis. No focal lesion or intrahepatic biliary duct dilatation. The right lobe measures 14.5 cm in length. The left lobe measures 10.4 cm in length. Portal flow is towards the liver (hepatopetal). Shear wave liver elastography median stiffness is 1.88 m/s (reference: normal median stiffness is 1.3 m/s or less). Previously this value was 1.76. IQR/median stiffness to assess sampling precision is 0.16 (reference: good quality data set is IQR/median stiffness of 0.15 or less). Previously this value was 0.35. GALLBLADDER: The gallbladder is physiologically distended without evidence of stones, sludge, polyps, wall thickening or pericholecystic fluid. COMMON BILE DUCT: Normal in caliber measuring 0.4 cm in diameter. RIGHT KIDNEY: Normal. No hydronephrosis. No renal calculi or focal parenchymal lesions. The kidney measures 11.6 cm in maximum dimension. LEFT KIDNEY: Normal. No hydronephrosis. No renal calculi or focal parenchymal lesions. The kidney measures 10.9 cm in maximum dimension. SPLEEN: The spleen is enlarged measuring 13.5 cm in maximum dimension. Multiple splenic rounded hyperechoic lesions are seen, possibly hemangiomas. FREE FLUID: None. US/US abdomen comp w elastography IMPRESSION: 1. Cirrhotic appearing liver. 2. Liver elastography: Although measurements appear consistent with compensated advanced chronic liver disease, there is statistical variability of the sampling which decreases accuracy. Liver stiffness measurement is without significant change from prior exam (change under 10%). REFERENCE: Society of Radiologists in Ultrasound Liver Stiffness Thresholds (2020): LIVER STIFFNESS THRESHOLDS: *Liver Stiffness equal or less than 1.3 m/s: High probability of being normal. *Liver Stiffness less than 1.7 m/s: In the absence of other known clinical signs, rules out compensated advanced chronic liver disease. *Liver Stiffness 1.7-2.1 m/s: Suggestive of compensated advanced chronic liver disease but need further test for confirmation. *Liver Stiffness over 2.1 m/s: Rules in compensated advanced chronic liver disease. *Liver Stiffness over 2.4 m/s: Suggestive of clinically significant portal hypertension. QUALITY OF DATA SET: *IQR/Median value equal or less than 0.15 implies a quality data set. *IQR/Median value over 0.15 implies a poor quality data set. SIGNIFICANT CHANGE FROM PRIOR EXAM: Significant change if liver stiffness measurement is 10% or greater from prior exam. OTHER CONSIDERATIONS: The stage of liver fibrosis may be overestimated in the setting of acute hepatitis, liver inflammation, elevated liver function tests, hepatic vascular congestion, obstructive cholestasis, non-fasting state, and infiltrative diseases such as amyloidosis and lymphoma. In some patients with NAFLD, the liver stiffness thresholds for compensated advanced chronic liver disease may be lower. In causes other than viral hepatitis and NAFLD, liver stiffness thresholds are not well established. Electronically signed by: Riaz Barajas MD 11/18/2023 06:00 PM EDT Dictated By: Riaz Barajas MD Signed By: <Electronically signed by Riaz Barajas MD in OV> 11/18/23 1800 DD/ 0930 TD/TT: 11/17/23 1000 Clinical Provider Trainer: LYLY REASON FOR VISIT Patient presents today for alcoholic liver disease MEDICATIONS Medication SIG (Take, Route, Frequency, Duration) Notes Start Date End Date Status Sertraline HCl 100 MG take 1 tablet by m outh once daily Orally Once a day Active Furosemide 40 MG TAKE 1 TABLET BY MERE TH DAILY Oral for 90 Active Losartan Potassium 100 MG TAKE 1 TABLET BY MOUTH EVERY DAY Oral for 90 Active Folic Acid 1 MG TAKE 1 TABLET BY MERE TH DAILY Oral for 90 Active Valsartan 160 MG TAKE 2 TABLETS BY MO UTH EVERY DAY Oral for 30 Active Pantoprazole Sodium 40 MG TAKE 1 TABLET BY MOUTH TWICE DAILY Oral for 90 Active Acamprosate Calcium 333 MG TAKE 2 TABLET S BY MOUTH THREE TIMES DAILY Oral for 30 Active Propranolol HCl 20 MG TAKE 1 TABLET BY M OUTH TWICE DAILY Oral for 90 Active Rosuvastatin Calcium 10 MG TAKE 1 TABLET BY MOUTH EVERY DAY Oral for 90 Active B-1 100 MG TAKE 1 TABLET BY MERE TH ONCE DAILY Oral for 90 Active Valsartan-hydroCHLOROthiazid e 320-25 MG take 1 tablet by mouth once daily Oral for 90 Active Atorvastatin Calcium 20 MG take 1 tablet by mouth at bedtime Oral for 90 Active amLODIPine Besylate 5 MG TAKE 1 TABLET B Y MOUTH EVERY DAY Oral for 90 Active Naltrexone HCl 50 MG TAKE 1 TABLET BY MO UTH EVERY DAY Orally Once a day Active Spironolactone 50 MG TAKE 1 TABLET BY MO UTH DAILY Oral for 90 Active SOCIAL HISTORY Tobacco Use: Social History [...] ast year? No Points 0 Interpretation Negative VITAL SIGNS BMI 31.54 kg/m2 11/11/2023 Blood pressure systolic 000 mm Hg 11/11/19 24 Blood pressure diastolic 00 mm Hg 024 Height 67 in 11/11/2023 Temperature 97.7 degrees Fahrenheit 11/11/19 24 Weight 201 lb 6 oz lbs 11/11/2023 Encounters Encounter Location Date Provider Diagnosis [facility] [address] [place] [address] 11/11/2023 Kelechi Evangelista Alcoholic liver disease K70.9 and Alcoholic cirrhosis of liver without ascites K70.30 ASSESSMENTS Encounter Date Diagnosis Assessment Notes Treatment Notes Treatment Clinical Notes 11/11/2023 Alcoholic liver disease (ICD-10 - K70.9) Keep avoiding alcohol completely, watch diet, and lose some weight 11/11/2023 Alcoholic cirrhosis of liver without ascites (ICD-10 - K70.30) PLAN OF TREATMENT Treatment Notes Assessment Notes Alcoholic liver disease Keep avoiding al cohol completely, watch diet, and lose some weight Pending Test Test Name Order Date LIVER PROFILE 11/11/2023 CBC w DIFF 11/11/2023 ALPHA-FETOPROTEIN,TUMOR MARKER 4 Next Appt Details Follow Up: 1 Year, Reason: Provider Name:Kelechi Evangelista , 11/09/2024 01:00:00 PM, [address], [address], [place], [address], Progress Notes * Examination Category Sub-Category Detail [...]
--- OUTSIDE RECORDS SUMMARY | 2024-02-10 21:11 | XMS_ITS | Patient Health Record ---
Author Organization [facility] Address [address] [place] [address] Care Team Providers Care Marble Finisher Name Role Phone Ana Mercado Primary Care Provider Unavailab Kelechi Srivastava Unavailable [phone] ALLERGIES No Known Allergies RESULTS Component Value Reference Range Notes Prothrombin Time INR Reviewed date:04/08/2023 06:24:09 PM Interpretation: Performing Lab:[facility], [address] [place] [phone] Notes/Report: Prothrombin Time 12.9 11.1-13.3 SEC INTERNATIONAL [...] Ammonia Reviewed date:04/08/2023 06:24:01 PM Interpretation: Performing Lab:[facility], [address] [place] [phone] Notes/Report: Ammonia 76 13-55 umol/L Complete Blood Count Auto Di ff Reviewed date:04/08/2023 06:24:44 PM Interpretation: Performing Lab:[facility], [address] [place] [phone] Notes/Report: White Blood Count 7.8 4.8-10.8 X10*3/uL Red Blood Count 3.64 4.60-5.80 X10*6/uL Hemoglobin 9.7 14.0-18.0 g/dl Hematocrit 30.7 42.0-52.0 % Mean Corpuscular Volume 84.3 80.0-98.0 fL Mean Corpuscular Hemoglobin 26.6 27.0-33.0 pg Mean Corpuscular HGB Conc 31.6 31.0-36.0 g/dl Red Cell Distribution Width 13.1 11.0-16.0 % Platelet Count 252 160-400 X10*3/uL Mean Platelet Volume 10.8 9.4-12.4 fL Neutrophils Percent Auto 44.5 45-73 % Imm Gran Pct Auto 0.3 0.0-0.4 % Lymphocytes Percent Auto 40.5 20-40 % Monocytes Percent Auto 12.5 2-11 % Eosinophils Percent Auto 1.8 0-4 % Basophils Percent Auto 0.4 0-2 % NRBC Pct Auto 0.0 0.0-0.2 /100WBC Neutrophils Absolute Auto 3.5 2.0-8.3 x10*3/u L Imm Gran Abs Auto 0.02 0.00-0.03 X10*3/uL Lymphocytes Absolute Auto 3.1 1.2-4.9 X10*3/u L Monocytes Absolute Auto 1.0 0.1-1.2 X10*3/uL Eosinophils Absolute Auto 0.1 0.0-0.4 X10*3/u L Basophils Absolute Auto 0.0 0.0-0.2 X10*3/uL NRBC Abs Auto 0.000 0.0-0.012 X10*3/uL Liver Panel Reviewed date:04/08/2023 06:24:23 PM Interpretation: Performing Lab:[facility], [address] [place] [phone] Notes/Report: Bilirubin Total 0.3 0.0-1.0 mg/dL Bilirubin Direct 0.2 0.0-0.5 mg/dL Aspartate Amino Transferase 43 5-37 U/L Alanine Aminotransferase 29 0-40 U/L Total Protein 8.2 6.5-8.0 g/dL Albumin Level 4.0 3.5-5.0 g/dL Alkaline Phosphatase 87 39-117 U/L Alpha Fetoprotein Reviewed date:04/09/2023 07:37:16 PM Interpretation: Performing Lab:[facility], [address] [place] [phone] Notes/Report: Alpha Fetoprotein 3.1 <6.1 ng/mL This test was performed using the Glenda Waverly chemiluminescent method. Values obtained from different assay methods cannot be used interchangeably. AFP levels, regardless of value, should not be interpreted as absolute evidence of the presence or absence of disease. THIS TEST WAS PERFORMED AT: [facility] [address] [place] [phone] TIFFANIE GARCIA MD Prothrombin Time INR Reviewed date:11/11/2023 05:24:02 PM Interpretation: Performing Lab:[facility], [address] [place] [phone] Notes/Report: Prothrombin Time 13.0 11.1-13.3 SEC INTERNATIONAL [...] Ammonia Reviewed date:11/11/2023 05:22:00 PM Interpretation: Performing Lab:[facility], [address] [place] [phone] Notes/Report: Ammonia 53 13-55 umol/L US abdomen comp w elastograp hy Reviewed date:11/22/2023 08:08:11 PM Interpretation: Performing Lab: Notes/Report: [address] [address] Ultrasound Report Signed Patient: Michelet Ahuja MR#: [id number] : 1965 Acct:[id number] Age/Sex: 58 / M ADM Date: 11/17/23 Loc: HO.US Attending Dr: Kelechi Evangelista MD Ordering Physician: Kelechi Evangelista MD Date of Service: 11/17/23 Procedure(s): US abdomen comp w elastography Accession Number(s): [id number] cc: Ana Mercado MD; Kelechi Evangelista MD [...] 11/18/23 1800 DD/ 0930 TD/TT: 11/17/23 1000 Escrow Clerk: LYLY Complete Blood Count Auto Di ff Reviewed date:11/11/2023 05:23:40 PM Interpretation: Performing Lab:[facility], [address] [place] [phone] Notes/Report: White Blood Count 7.5 4.8-10.8 X10*3/uL Red Blood Count 4.14 4.60-5.80 X10*6/uL Hemoglobin 12.1 14.0-18.0 g/dl Hematocrit 36.3 42.0-52.0 % Mean Corpuscular Volume 87.7 80.0-98.0 fL Mean Corpuscular Hemoglobin 29.2 27.0-33.0 pg Mean Corpuscular HGB Conc 33.3 31.0-36.0 g/dl Red Cell Distribution Width 13.0 11.0-16.0 % Platelet Count 212 160-400 X10*3/uL Mean Platelet Volume 11.3 9.4-12.4 fL Neutrophils Percent Auto 52.0 45-73 % Imm Gran Pct Auto 0.1 0.0-0.4 % Lymphocytes Percent Auto 34.9 20-40 % Monocytes Percent Auto 10.5 2-11 % Eosinophils Percent Auto 2.1 0-4 % Basophils Percent Auto 0.4 0-2 % NRBC Pct Auto 0.0 0.0-0.2 /100WBC Neutrophils Absolute Auto 3.9 2.0-8.3 x10*3/u L Imm Gran Abs Auto 0.01 0.00-0.03 X10*3/uL Lymphocytes Absolute Auto 2.6 1.2-4.9 X10*3/u L Monocytes Absolute Auto 0.8 0.1-1.2 X10*3/uL Eosinophils Absolute Auto 0.2 0.0-0.4 X10*3/u L Basophils Absolute Auto 0.0 0.0-0.2 X10*3/uL NRBC Abs Auto 0.000 0.0-0.012 X10*3/uL Liver Panel Reviewed date:11/11/2023 05:23:55 PM Interpretation: Performing Lab:[address] [address] Notes/Report: Bilirubin Total 0.4 0.0-1.0 mg/dL Bilirubin Direct 0.2 0.0-0.5 mg/dL Aspartate Amino Transferase 41 5-37 U/L Alanine Aminotransferase 32 0-40 U/L Total Protein 7.6 6.5-8.0 g/dL Albumin Level 4.0 3.5-5.0 g/dL Alkaline Phosphatase 72 39-117 U/L Alpha Fetoprotein Reviewed date:11/14/2023 02:06:14 PM Interpretation: Performing Lab:[address] [address] Notes/Report: Alpha Fetoprotein 2.2 <6.1 ng/mL This test was performed using the Glenda Waverly chemiluminescent method. Values obtained from different assay methods cannot be used interchangeably. AFP levels, regardless of value, should not be interpreted as absolute evidence of the presence or absence of disease. THIS TEST WAS PERFORMED AT: [facility] [address] [place] [phone] TIFFANIE GARCIA MD REASON FOR REFERRAL No Information MEDICATIONS Medication SIG (Take, Route, Frequency, Duration) Notes Start Date End Date Status Pantoprazole Sodium 40 MG TAKE 1 TABLET [...] TH ONCE DAILY Oral for 90 Active Sertraline HCl 100 MG take 1 tablet by m outh once daily Orally Once a day Active Furosemide 40 MG TAKE 1 TABLET BY MERE TH DAILY Oral for 90 Active Valsartan-hydroCHLOROthiazid e 320-25 MG take 1 tablet by mouth once daily Oral for 90 Active Losartan Potassium 100 MG TAKE 1 TABLET BY MOUTH EVERY DAY Oral for 90 Active Atorvastatin Calcium 20 MG take 1 tablet by mouth at bedtime Oral for 90 Active Folic Acid 1 MG TAKE 1 TABLET BY MERE TH DAILY Oral for 90 Active amLODIPine Besylate 5 MG TAKE 1 TABLET B Y MOUTH EVERY DAY Oral for 90 Active Valsartan 160 MG TAKE 2 TABLETS BY MO UTH EVERY DAY Oral for 30 Active Naltrexone HCl 50 MG TAKE 1 TABLET BY MO UTH EVERY DAY Orally Once a day Active Spironolactone 50 MG TAKE 1 TABLET BY MO UTH DAILY Oral for 90 Active IMMUNIZATIONS Vaccine Route Administration Date Status Comme nts Influenza Unknown 11/10/2018 Administered Influenza Unknown 12/23/2022 Administered Influenza Unknown 08/11/2018 Refused SOCIAL HISTORY Tobacco Use: Social History Observation [...] W/U Status Risk SNOMED Code Notes Problem Alcoholic liver disease (K70.9) Active confirmed 32861086 Problem Encounter for screening for malignant neoplasm of colon (Z12.11) Active confirmed 942126109 Problem Elevated liver enzymes (R74.8) Active confirmed 868036830 Problem Hypertension, unspecified type (I10) Active confirmed 83884652 Problem Iron excess (E83.19) Active confirmed 86130009 Problem Secondary esophageal varices with bleeding (I85.11) Active confirmed 93040411 Problem Hepatic encephalopathy (K76.82) Active confirmed 47120767 Problem Alcoholic cirrhosis of liver without ascites (K70.30) Active confirmed 973725690 VITAL SIGNS Temperature 97.7 degrees Fahrenheit 11/11/2023 Blood pressure diastolic 00 mm Hg 11/11/2023 Height 67 in 11/11/2023 Blood pressure systolic 000 mm Hg 11/11/2023 Weight 201 lb 6 oz lbs 11/11/2023 BMI 31.54 kg/m2 11/11/2023 Encounters Encounter Location Date Provider Diagnosis [facility] [address] [place] [phone] 04/08/2023 Kelechi Evangelista Alcoholic liver dise ase K70.9 ; Elevated liver enzymes R74.8 ; Secondary esophageal varices with bleeding I85.11 ; Hepatic encephalopathy K76.82 and Alcoholic cirrhosis of liver without ascites K70.30 [facility] [address] [place] [phone] 11/11/2023 Kelechi Evangelista Alcoholic liver dise ase K70.9 and Alcoholic cirrhosis of liver without ascites K70.30 ASSESSMENTS Encounter Date Diagnosis Assessment Notes Treatment Notes Treatment Clinical Notes 04/08/2023 Elevated liver enzymes (ICD-10 - R74.8) 04/08/2023 Alcoholic liver disease (ICD-10 - K70.9) 11/11/2023 Alcoholic cirrhosis of liver without ascites (ICD-10 - K70.30) 11/11/2023 Alcoholic liver disease (ICD-10 - K70.9) Keep avoiding alcohol completely, watch diet, and lose some weight 04/08/2023 Secondary esophageal varices with bleeding (ICD-10 - I85.11) 04/08/2023 Hepatic encephalopathy (ICD-10 - K76.82) 04/08/2023 Alcoholic cirrhosis of liver without ascites (ICD-10 - K70.30) PLAN OF TREATMENT Pending Test Test Name Order Date LIVER PROFILE 04/08/2023 LIVER PROFILE 07/28/2016 LIVER PROFILE 01/31/2020 LIVER PROFILE 11/11/2023 IRON + IBC (FE) 07/28/2016 FERRITIN 07/28/2016 CBC w DIFF 07/28/2016 CBC w DIFF 11/11/2023 CBC w DIFF 04/08/2023 CBC w DIFF 01/31/2020 PROTHROMBIN TIME (PT, INR) 01/31/2020 PROTHROMBIN TIME (PT, INR) 07/28/2016 HEPATITIS B, C PROFILE 07/28/2016 HEPATITIS A ANTIBODY-IGM 07/28/2016 [id number]-8-[id number] (A1A) 07/28/2016 ALPHA-FETOPROTEIN,TUMOR MARKER 4 ALPHA-FETOPROTEIN,TUMOR MARKER 4 MITOCHONDRIAL AB 07/28/2016 SMOOTH MUSCLE ANTIBODIES 07/28/2016 FLUOR. ANTINUCLEAR AB SCREEN (IVANIA) 07/01 HEPATITIS A ANTIBODY-IGG 07/28/2016 Future Test Test Name Order Date COLONOSCOPY 07/22/2016 Next Appt Details Provider Name:Kelechi Evangelista , 11/09/2024 01:00:00 PM, [address], [address], [place], [address], Insurance Providers Payer Name Payer Address Payer Phone Subscriber Number Group Number Insured Name Patient Relationship to Insured Coverage Start Date Coverage End Date MEDICARE OF [place] [address] [place] [address] [id number] MICHELET AHUJA Self - patient is the insured MEDICAID OF [facility] [address] [place] [address] [id number] MICHELET AHUJA Self - patient is the insured MEDICAL (GENERAL) HISTORY Medical History History ICD Code Hypertension Hypercholesterolemia Denies UT,DM,CVA,Lung disease,renal dise ase Depression EtOH-related liver disease-- -completely neg liver w/u in 07/2018--his viral testing was negative for immunity to hepatitis A and B. He was given a prescription for TwinRx at the 04/06/2019 office visit. Neg. screening colonoscopy in 10/2016 He was hospitalized at [facility] in August of 2022 for about one month by his description. He describes that he was in a coma in relation to his liver disease and alcohol use. He describes upper GI bleeding with need for transfusions and endoscopy with banding. He describes sobriety since that hospitalization in August of 2022. Surgical History Surgery Date(Month/Year) Fatty tumor removed left thigh
--- OUTSIDE RECORDS SUMMARY | 2024-02-10 21:11 | XMS_ITS ---
Author Organization [facility] Address [address] [place] [address] Care Team Providers Care Two Way Radio Installer Name Role Phone Ana Mercado Primary Care Provider Unavailab Kelechi Srivastava Unavailable [phone] REASON FOR VISIT Patient presents today for liver disease MEDICATIONS Medication SIG (Take, Route, Frequency, Duration) Notes Start Date End Date Status Twinrix 720-20 ELU-MCG/ML 1 Intramuscula r One at month zero,1 at month one, then 1 at month 6 for 1 days 01/31/2020 Active Valsartan-hydroCHLOROthiaz rudy 320-25 MG take 1 tablet by mouth once daily Oral for 90 Active Atorvastatin Calcium 20 MG take 1 tablet by mouth at bedtime Oral for 90 Active Sertraline HCl 100 MG take 1 tablet by m outh once daily Orally Once a day Active Twinrix 720-20 ELU-MCG/ML 1 Intramuscula r One at month zero,1 at month one, then 1 at month 6 for 1 days 01/31/2020 Active Twinrix 720-20 ELU-MCG/ML 1 injection In tramuscular Month zero, one, and six for 1 days 04/06/2019 Active amLODIPine Besylate 5 MG TAKE 1 TABLET B Y MOUTH EVERY DAY Oral for 90 Active Naltrexone HCl 50 MG TAKE 1 TABLET BY MO UTH EVERY DAY Orally Once a day Active Encounters Encounter Location Date Provider Diagnosis [facility] [address] [place] [address] 10/09/2022 Kelechi Evangelista PLAN OF TREATMENT Next Appt Details Provider Name:Kelechi Evangelista , 11/09/2024 01:00:00 PM, [address], [address], [place], [address],
== END 2024-02-09 12:37 | disposition home or self-care (01) ==
LOC: HO.10HDL 12:36
PROVIDERS: Visit Provider Internal Medicine
DX: D50.8 Other iron deficiency anemias (principal); F10.21 Alcohol dependence, in remission; I85.01 Esophageal varices with bleeding; K70.30 Alcoholic cirrhosis of liver without ascites; M65.4 Radial styloid tenosynovitis [de Quervain]
CPT/HCPCS: 36415; 80053; 85025

== ENCOUNTER 2024-07-22 10:09 | Outpatient (REF) | payer MEDICARE, MEDICAID, SELFPAY ==
--- OUTSIDE RECORDS SUMMARY | 2024-07-22 10:25 | XMS_ITS ---
Author Organization [facility] Address [address] [place] [address] Care Team Providers Care Film Waxer Name Role Phone Ana Mercado Primary Care Provider Unavailab Kelechi Srivastava Unavailable [phone] Allergies No Known Allergies Results Component Value Reference Range Notes Prothrombin Time INR Reviewed date:04/08/2023 06:24:09 PM Interpretation: Performing Lab:[facility], [address] [place] [id number] Notes/Report: Prothrombin Time 12.9 11.1-13.3 SEC INTERNATIONAL [...] Ammonia Reviewed date:04/08/2023 06:24:01 PM Interpretation: Performing Lab:[address] [id number] Notes/Report: Ammonia 76 13-55 umol/L REASON FOR VISIT Patient presents today for a liver ds Medications Medication SIG (Take, Route, Frequency, Duration) Notes [...] once daily Orally Once a day Active Social History Tobacco Use: Social History Observation Description Date Details (start date - stop date) Never Smoker NA - NA Tobacco Use/Smoking Question Answer Notes Patient is a nonsmoker Alcohol Screen Question Answer Notes Did you have a drink containing alcohol in the p ast year? No Points 0 Interpretation Negative Section Notes: Nonsmoker; alcohol abuse but with reported sobriety since August of 2022 as of the OV in April 2023 Problems Problem Type SNOMED Code ICD Code Onset Dates Problem Status W/U Status Risk Notes Problem [id number] Secondary esophageal varices with bleeding (I85.11) Active confirmed Problem 46562222 Hepatic encephalopathy (K76.82) Active confirmed Problem 770979420 Alcoholic cirrho sis of liver without ascites (K70.30) Active confirmed Vital Signs Temperature 97.8 degrees Fahrenheit 04/08/19 24 Blood pressure systolic 00 mm Hg 04/08/19 24 Blood pressure diastolic 00 mm Hg 024 Height 67 in 04/08/2023 Weight 195 lbs 04/08/2023 BMI 30.54 kg/m2 04/08/2023 Encounters Encounter Location Date Provider Diagnosis [facility] [address] [place] [id number] 04/08/2023 Kelechi Evangelista Alcoholic liver dise ase K70.9 ; Elevated liver enzymes R74.8 ; Secondary esophageal varices with bleeding I85.11 ; Hepatic encephalopathy K76.82 and Alcoholic cirrhosis of liver without ascites K70.30 Assessments Encounter Date Diagnosis (ICD Code) Assessment Notes Treatment Notes Treatment Clinical Notes Section Notes 04/08/2023 Alcoholic liver disease (ICD-10 - K70.9) Overall, Michelet appears remarkably well considering his significant alcohol history and what sounds like a significant hospitalization last summer with GI bleeding, hepatic encephalopathy, and respiratory failure. We did have a very detailed discussion today that the moraes thing helping him at this point is his sobriety since last August. We did review that a relapse of alcohol abuse will certainly make him very ill with a significant risk of dying from that. I did advise him to continue his current medications including his PPI, beta samuel, and diuretic. I will try to obtain copies of any records from his hospitalization last summer in regard to his GI procedures and any imaging studies. I don't think he needs any imaging studies at this time as I'm sure he had that done last summer when he was at [facility]. I shall check some laboratories including an alpha-fetoprotein level, liver profile, ammonia level, PT with INR, and CBC with platelet count today. Of note, I did advise him to avoid all aspirin and NSAID products completely given his high risk of GI bleeding. I advised him that the only pain medication he could use safely would be one or 2 doses of Tylenol during the day if need be. I have given him an appointment to see me again in the Fall for a followup visit but did advise him to contact me prior to that if he has any problems or questions I can be of assistance with. Michelet was comfortable with this plan. Thank you again for allowing me to participate in Michelet's care. I shall continue to keep you advised of his progress 04/08/2023 Elevated liver enzymes (ICD-10 - R74.8) Overall, Michelet appears remarkably well considering his significant alcohol history and what sounds like a significant hospitalization last summer with GI bleeding, hepatic encephalopathy, and respiratory failure. We did have a very detailed discussion today that the moraes thing helping him at this point is his sobriety since last August. We did review that a relapse of alcohol abuse will certainly make him very ill with a significant risk of dying from that. I did advise him to continue his current medications including his PPI, beta samuel, and diuretic. I will try to obtain copies of any records from his hospitalization last summer in regard to his GI procedures and any imaging studies. I don't think he needs any imaging studies at this time as I'm sure he had that done last summer when he was at [facility]. I shall check some laboratories including an alpha-fetoprotein level, liver profile, ammonia level, PT with INR, and CBC with platelet count today. Of note, I did advise him to avoid all aspirin and NSAID products completely given his high risk of GI bleeding. I advised him that the only pain medication he could use safely would be one or 2 doses of Tylenol during the day if need be. I have given him an appointment to see me again in the Fall for a followup visit but did advise him to contact me prior to that if he has any problems or questions I can be of assistance with. Michelet was comfortable with this plan. Thank you again for allowing me to participate in Michelet's care. I shall continue to keep you advised of his progress 04/08/2023 Secondary esophageal varices with bleeding (ICD-10 - I85.11) Overall, Michelet appears remarkably well considering his significant alcohol history and what sounds like a significant hospitalization last summer with GI bleeding, hepatic encephalopathy, and respiratory failure. We did have a very detailed discussion today that the moraes thing helping him at this point is his sobriety since last August. We did review that a relapse of alcohol abuse will certainly make him very ill with a significant risk of dying from that. I did advise him to continue his current medications including his PPI, beta samuel, and diuretic. I will try to obtain copies of any records from his hospitalization last summer in regard to his GI procedures and any imaging studies. I don't think he needs any imaging studies at this time as I'm sure he had that done last summer when he was at [facility]. I shall check some laboratories including an alpha-fetoprotein level, liver profile, ammonia level, PT with INR, and CBC with platelet count today. Of note, I did advise him to avoid all aspirin and NSAID products completely given his high risk of GI bleeding. I advised him that the only pain medication he could use safely would be one or 2 doses of Tylenol during the day if need be. I have given him an appointment to see me again in the Fall for a followup visit but did advise him to contact me prior to that if he has any problems or questions I can be of assistance with. Michelet was comfortable with this plan. Thank you again for allowing me to participate in Michelet's care. I shall continue to keep you advised of his progress 04/08/2023 Hepatic encephalopathy (ICD-10 - K76.82) Overall, Michelet appears remarkably well considering his significant alcohol history and what sounds like a significant hospitalization last summer with GI bleeding, hepatic encephalopathy, and respiratory failure. We did have a very detailed discussion today that the moraes thing helping him at this point is his sobriety since last August. We did review that a relapse of alcohol abuse will certainly make him very ill with a significant risk of dying from that. I did advise him to continue his current medications including his PPI, beta samuel, and diuretic. I will try to obtain copies of any records from his hospitalization last summer in regard to his GI procedures and any imaging studies. I don't think he needs any imaging studies at this time as I'm sure he had that done last summer when he was at [facility]. I shall check some laboratories including an alpha-fetoprotein level, liver profile, ammonia level, PT with INR, and CBC with platelet count today. Of note, I did advise him to avoid all aspirin and NSAID products completely given his high risk of GI bleeding. I advised him that the only pain medication he could use safely would be one or 2 doses of Tylenol during the day if need be. I have given him an appointment to see me again in the Fall for a followup visit but did advise him to contact me prior to that if he has any problems or questions I can be of assistance with. Michelet was comfortable with this plan. Thank you again for allowing me to participate in Michelet's care. I shall continue to keep you advised of his progress 04/08/2023 Alcoholic cirrhosis of liver without ascites (ICD-10 - K70.30) Overall, Michelet appears remarkably well considering his significant alcohol history and what sounds like a significant hospitalization last summer with GI bleeding, hepatic encephalopathy, and respiratory failure. We did have a very detailed discussion today that the moraes thing helping him at this point is his sobriety since last August. We did review that a relapse of alcohol abuse will certainly make him very ill with a significant risk of dying from that. I did advise him to continue his current medications including his PPI, beta samuel, and diuretic. I will try to obtain copies of any records from his hospitalization last summer in regard to his GI procedures and any imaging studies. I don't think he needs any imaging studies at this time as I'm sure he had that done last summer when he was at [facility]. I shall check some laboratories including an alpha-fetoprotein level, liver profile, ammonia level, PT with INR, and CBC with platelet count today. Of note, I did advise him to avoid all aspirin and NSAID products completely given his high risk of GI bleeding. I advised him that the only pain medication he could use safely would be one or 2 doses of Tylenol during the day if need be. I have given him an appointment to see me again in the Fall for a followup visit but did advise him to contact me prior to that if he has any problems or questions I can be of assistance with. Michelet was comfortable with this plan. Thank you again for allowing me to participate in Michelet's care. I shall continue to keep you advised of his progress Plan Of Treatment Pending Test Test Name Order Date LIVER PROFILE 04/08/2023 CBC w DIFF 04/08/2023 ALPHA-FETOPROTEIN,TUMOR MARKER Next Appt Details Follow Up: 2023, Genoo n: Provider Name:Kelechi Evangelista , 11/09/2024 01:00:00 PM, [address] [place] [address], [facility] [address], [place], [address], Progress Notes * MICHELET AHUJADOB:[birth year] (57 yo M)Acc No.[id number]:04/08/2023 Progress Notes Patient:?AHUJA MICHELET Provider:?Kelechi Evangelista MD :1965???Age:57 Y???Sex:Male Ash e:04/08/2023 Address:[address] [place], [place] [id number] Pcp:Colin Drake Subjective: * Chief Complaints: * ???Patient presents today fo r a liver ds * HPI: ???incontinence:? I saw Michelet in consultation today in regard to further evaluation of his cirrhosis and alcohol-related liver disease. ?I last saw Michelet in January of 2020. At that time things had been stable in regard to his alcohol-related liver disease. His alcohol consumption had been cut down slightly at that time. He unfortunately began drinking heavily again at some point after that and he describes a one-month hospitalization at [facility] in the summer of 2022. He describes GI bleeding, coma, and respiratory failure for which he was intubated. He described one or 2 upper endoscopies with banding of varices. He describes that since that hospitalization last summer he has been completely abstinent from alcohol. He has had no further signs of bleeding. He denies any jaundice, increasing abdominal girth, nor edema. He is eating comfortably and denies any significant heartburn or dysphagia. He reports his bowel movements have been regular and without any melena nor hematochezia. ?He did have an abdominal ultrasound in April of 2022 that describes cirrhosis but no sign of any liver mass, splenomegaly, nor ascites. The most recent labs I have from November 2022 revealed a hemoglobin of 10.1 with a normal MCV, a normal platelet count, normal electrolytes and renal function, a total bilirubin 0.8, AST of 63, ALT of 39, alkaline phosphatase 78, and albumin of 3.8. His ferritin level was 167 in August of 2022. * ROS:?General/Constitutional:?Change in appetite?denies.?Chills?denies.?Fatigue?denies.?Ophthalmologic:?Comments?all negative.?ENT:?Comments?all negative.?Respiratory:?hemoptysis?denies.?Cough?denies.?Cardiovascular:?Chest pain?denies.?Orthopnea?denies.?Gastrointestinal:?Comments?See HPI for details.?Genitourinary:?Hematuria?denies.?Dysuria?denies.?Musculoskeletal:?Painful joints?denies.?Weakness?denies.?Skin:?Itching?denies.?Rash?denies.?Neurologic:?Headache?denies.?Seizures?denies.?Psychiatric:?Comments?as per PMH.? * Medical History:? * Surgical History:?Fatty tumo r removed left thigh * Hospitalization/Major Diagno stic Procedure:?No Hospitalization History. * Family History:?Father: dece ased, stroke, diagnosed with Heart disease.?Mother: alive, diagnosed with HTN (hypertension).? no known hx of colon cancer or liver disease. * Social History:?Tobacco Use:?Tobacco Use/Smoking?Patient is a?nonsmoker.?Drugs/Alcohol:?Alcohol Screen?Did you have a drink containing alcohol in the past year??No,?Points?0,?Interpretation?Negative.?Miscellaneous:?Marital status: single. Occupation: disabled. ???Nonsmoker; alcohol abuse but with reported sobriety since August of 2022 as of the OV in April 2023. * Medications:?TakingSertralin e HCl 100 MG Tablet take 1 tablet by mouth once daily Orally Once a dayValsartan-hydroCHLOROthiazide 320-25 MG Tablet take 1 tablet by mouth once daily Oral Atorvastatin Calcium 20 MG Tablet take 1 tablet by mouth at bedtime Oral amLODIPine Besylate 5 MG Tablet TAKE 1 TABLET BY MOUTH EVERY DAY Oral Naltrexone HCl 50 MG Tablet TAKE 1 TABLET BY MOUTH EVERY DAY Orally Once a daySpironolactone 50 MG Tablet TAKE 1 TABLET BY MOUTH DAILY Oral Pantoprazole Sodium 40 MG Tablet Delayed Release TAKE 1 TABLET BY MOUTH TWICE DAILY Oral Acamprosate Calcium 333 MG Tablet Delayed Release TAKE 2 TABLETS BY MOUTH THREE TIMES DAILY Oral Propranolol HCl 20 MG Tablet TAKE 1 TABLET BY MOUTH TWICE DAILY Oral Rosuvastatin Calcium 10 MG Tablet TAKE 1 TABLET BY MOUTH EVERY DAY Oral B-1 100 MG Tablet TAKE 1 TABLET BY MOUTH ONCE DAILY Oral Furosemide 40 MG Tablet TAKE 1 TABLET BY MOUTH DAILY Oral Losartan Potassium 100 MG Tablet TAKE 1 TABLET BY MOUTH EVERY DAY Oral Folic Acid 1 MG Tablet TAKE 1 TABLET BY MOUTH DAILY Oral Valsartan 160 MG Tablet TAKE 2 TABLETS BY MOUTH EVERY DAY Oral Taking Sertraline HCl 100 MG Tablet take 1 tablet by mouth once daily Orally Once a dayTaking Valsartan-hydroCHLOROthiazide 320-25 MG Tablet take 1 tablet by mouth once daily Oral Taking Atorvastatin Calcium 20 MG Tablet take 1 tablet by mouth at bedtime Oral Taking amLODIPine Besylate 5 MG Tablet TAKE 1 TABLET BY MOUTH EVERY DAY Oral Taking Naltrexone HCl 50 MG Tablet TAKE 1 TABLET BY MOUTH EVERY DAY Orally Once a dayTaking Spironolactone 50 MG Tablet TAKE 1 TABLET BY MOUTH DAILY Oral Taking Pantoprazole Sodium 40 MG Tablet Delayed Release TAKE 1 TABLET BY MOUTH TWICE DAILY Oral Taking Acamprosate Calcium 333 MG Tablet Delayed Release TAKE 2 TABLETS BY MOUTH THREE TIMES DAILY Oral Taking Propranolol HCl 20 MG Tablet TAKE 1 TABLET BY MOUTH TWICE DAILY Oral Taking Rosuvastatin Calcium 10 MG Tablet TAKE 1 TABLET BY MOUTH EVERY DAY Oral Taking B-1 100 MG Tablet TAKE 1 TABLET BY MOUTH ONCE DAILY Oral Taking Furosemide 40 MG Tablet TAKE 1 TABLET BY MOUTH DAILY Oral Taking Losartan Potassium 100 MG Tablet TAKE 1 TABLET BY MOUTH EVERY DAY Oral Taking Folic Acid 1 MG Tablet TAKE 1 TABLET BY MOUTH DAILY Oral Taking Valsartan 160 MG Tablet TAKE 2 TABLETS BY MOUTH EVERY DAY Oral DiscontinuedFluticasone Propionate 50 MCG/ACT Suspension Nasal Ibuprofen 600 MG Tablet TAKE 1 TABLET BY MOUTH EVERY 6 HOURS NEEDED FOR PAIN Oral Cyclobenzaprine HCl 5 MG Tablet TAKE 1 TABLET BY MOUTH THREE TIMES DAILY NEEDED FOR MUSCLE SPASM Oral Twinrix 720-20 ELU- MCG/ML Suspension Prefilled Syringe 1 injection Intramuscular Month zero, one, and sixTwinrix 720-20 ELU-MCG/ML Suspension Prefilled Syringe 1 Intramuscular One at month zero,1 at month one, then 1 at month 6Twinrix 720-20 ELU-MCG/ML Suspension Prefilled Syringe 1 Intramuscular One at month zero,1 at month one, then 1 at month 6Medication List reviewed and reconciled with the patientDiscontinued Fluticasone Propionate 50 MCG/ACT Suspension Nasal Discontinued Ibuprofen 600 MG Tablet TAKE 1 TABLET BY MOUTH EVERY 6 HOURS NEEDED FOR PAIN Oral Discontinued Cyclobenzaprine HCl 5 MG Tablet TAKE 1 TABLET BY MOUTH THREE TIMES DAILY NEEDED FOR MUSCLE SPASM Oral Discontinued Twinrix 720-20 ELU-MCG/ML Suspension Prefilled Syringe 1 injection Intramuscular Month zero, one, and sixDiscontinued Twinrix 720-20 ELU-MCG/ML Suspension Prefilled Syringe 1 Intramuscular One at month zero,1 at month one, then 1 at month 6Discontinued Twinrix 720-20 ELU-MCG/ML Suspension Prefilled Syringe 1 Intramuscular One at month zero,1 at month one, then 1 at month 6Medication List reviewed and reconciled with the patient * Allergies:?N.K.D.A.yes[Aller gies Verified] Objective: * Vitals:?Wt: 195 lbs, Ht: 67 in, BMI:30.54 Index, BP: 00/00 mm Hg, Temp: 97.8. * Examination: ???General Examination: ?GENERAL APPEARANCE:?pleasant, well nourished, well developed, in no acute distress.?EYES:?sclera non-icteric.?ORAL CAVITY:?mucosa moist.?NECK/THYROID:?no cervical lymphadenopathy, neck supple.?SKIN:?nonjaundiced, no spider angiomata.?HEART:?S1, S2 normal.?LUNGS:?clear to auscultation bilaterally.?ABDOMEN:?normal bowel sounds, no guarding or rigidity, no guarding or rigidity, no masses palpable, soft, nontender, nondistended.?EXTREMITIES:?no edema.?NEUROLOGIC:?alert and oriented.? Assessment: * Assessment: 1.?Alcoholic liver disease - K70.9 (Primary)?2.?Elevated liver enzymes - R74.8?3.?Secondary esophageal varices with bleeding - I85.11?4.?Hepatic encephalopathy - K76.82?5.?Alcoholic cirrhosis of liver without ascites - K70.30? Overall, Michelet appears erika rkably well considering his significant alcohol history and what sounds like a significant hospitalization last summer with GI bleeding, hepatic encephalopathy, and respiratory failure. We did have a very detailed discussion today that the moraes thing helping him at this point is his sobriety since last August. We did review that a relapse of alcohol abuse will certainly make him very ill with a significant risk of dying from that. I did advise him to continue his current medications including his PPI, beta samuel, and diuretic. I will try to obtain copies of any records from his hospitalization last summer in regard to his GI procedures and any imaging studies. I don't think he needs any imaging studies at this time as I'm sure he had that done last summer when he was at [facility]. I shall check some laboratories including an alpha-fetoprotein level, liver profile, ammonia level, PT with INR, and CBC with platelet count today. Of note, I did advise him to avoid all aspirin and NSAID products completely given his high risk of GI bleeding. I advised him that the only pain medication he could use safely would be one or 2 doses of Tylenol during the day if need be. I have given him an appointment to see me again in the Fall for a followup visit but did advise him to contact me prior to that if he has any problems or questions I can be of assistance with. Michelet was comfortable with this plan. Thank you again for allowing me to participate in Michelet's care. I shall continue to keep you advised of his progress. Plan: * Treatment: ? Value Reference Range ?Prothrombin Time 12.9 11.1-1 3.3 - SEC * ?INTERNATIONAL NORM RATIO 1.1 0.9-1.1 - ?LAB: Ammonia* ? Value Reference Range ?Ammonia 76 H 13-55 - umol/L 2.?Elevated liver enzymes?LAB: LIVER PROFILE ?LAB: CBC w DIFF ?LAB: ALPHA-FETOPROTEIN,TUMOR MARKER ?LAB: Prothrombin Time INR* ? Value Reference Range ?Prothrombin Time 12.9 11.1-1 3.3 - SEC * ?INTERNATIONAL NORM RATIO 1.1 0.9-1.1 - ?LAB: Ammonia* ? Value Reference Range ?Ammonia 76 H 13-55 - umol/L 3.?Secondary esophageal varices with bleeding?LAB: LIVER PROFILE ?LAB: CBC w DIFF ?LAB: ALPHA-FETOPROTEIN,TUMOR MARKER ?LAB: Prothrombin Time INR* ? Value Reference Range ?Prothrombin Time 12.9 11.1-1 3.3 - SEC * ?INTERNATIONAL NORM RATIO 1.1 0.9-1.1 - ?LAB: Ammonia* ? Value Reference Range ?Ammonia 76 H 13-55 - umol/L 4.?Hepatic encephalopathy?LAB: LIVER PROFILE ?LAB: CBC w DIFF ?LAB: ALPHA-FETOPROTEIN,TUMOR MARKER ?LAB: Prothrombin Time INR* ? Value Reference Range ?Prothrombin Time 12.9 11.1-1 3.3 - SEC * ?INTERNATIONAL NORM RATIO 1.1 0.9-1.1 - ?LAB: Ammonia* ? Value Reference Range ?Ammonia 76 H 13-55 - umol/L 5.?Alcoholic cirrhosis of liver without ascites?LAB: LIVER PROFILE ?LAB: CBC w DIFF ?LAB: ALPHA-FETOPROTEIN,TUMOR MARKER ?LAB: Prothrombin Time INR* ? Value Reference Range ?Prothrombin Time 12.9 11.1-1 3.3 - SEC * ?INTERNATIONAL NORM RATIO 1.1 0.9-1.1 - ?LAB: Ammonia* ? Value Reference Range ?Ammonia 76 H 13-55 - umol/L * Procedure Codes:?3017F COLOR ECTAL CA SCREEN DOC [id number] TOBACCO [id number] BP SCR NOT PRFRM REC REASON NOS * Preventive Medicine:? ??Counseling:?Care goal follow-up plan:?Above Normal BMI Follow-up?Giving encouragement to exercise,?BMI management provided?Yes.? * Follow Up:?2023 * * Sign off status: Completed true * Provider:?Kelechi Evangelista MD Date:? 024 Generated for Kevi maricarmen/Rhys/eTransmitting on:?07/22/2024 10:24 AM EDT History and Physical Notes * HPI (History of Present Illness) Category Sub-Category Detail Notes Category Not es incontinence I saw Michelet in consultation today in regard to further evaluation of his cirrhosis and alcohol-related liver disease. I last saw Michelet in January of 2020. At that time things had been stable in regard to his alcohol-related liver disease. His alcohol consumption had been cut down slightly at that time. He unfortunately began drinking heavily again at some point after that and he describes a one-month hospitalization at [facility] in the summer. He describes GI bleeding, coma, and respiratory failure for which he was intubated. He described one or 2 upper endoscopies with banding of varices. He describes that since that hospitalization last summer he has been completely abstinent from alcohol. He has had no further signs of bleeding. He denies any jaundice, increasing abdominal girth, nor edema. He is eating comfortably and denies any significant heartburn or dysphagia. He reports his bowel movements have been regular and without any melena nor hematochezia. He did have an abdominal ultrasound in April of 2022 that describes cirrhosis but no sign of any liver mass, splenomegaly, nor ascites. The most recent labs I have from November 2022 revealed a hemoglobin of 10.1 with a normal MCV, a normal platelet count, normal electrolytes and renal function, a total bilirubin 0.8, AST of 63, ALT of 39, alkaline phosphatase 78, and albumin of 3.8. His ferritin level was 167 in August of 2022. Examination Category Sub-Category Detail Notes Category Not es General Examination GENERAL APPEARANCE: pleasant , well [...]
[2024-07-22 11:03] LABS: MANUAL DIFF FLAG NO
[2024-07-22 11:14] LABS: Basophils Percent Auto 0.5 % (0-2); Eosinophils Absolute Auto 0.2 X10*3/uL (0.0-0.4); Eosinophils Percent Auto 2.6 % (0-4); Hematocrit 38.5 % (42.0-52.0); Hemoglobin 12.6 g/dl (14.0-18.0); Imm Gran Abs Auto 0.02 X10*3/uL (0.00-0.03); Imm Gran Pct Auto 0.3 % (0.0-0.4); Lymphocytes Absolute Auto 2.7 X10*3/uL (1.2-4.9); Lymphocytes Percent Auto 36.9 % (20-40); Mean Corpuscular HGB Conc 32.7 g/dl (31.0-36.0); Mean Corpuscular Hemoglobin 28.6 pg (27.0-33.0); Mean Corpuscular Volume 87.5 fL (80.0-98.0); Mean Platelet Volume 11.5 fL (9.4-12.4); Monocytes Absolute Auto 0.7 X10*3/uL (0.1-1.2); Monocytes Percent Auto 9.2 % (2-11); Neutrophils Absolute Auto 3.7 x10*3/uL (2.0-8.3); Neutrophils Percent Auto 50.5 % (45-73); Platelet Count 217 X10*3/uL (160-400); Red Cell Distribution Width 12.7 % (11.0-16.0); White Blood Count 7.4 X10*3/uL (4.8-10.8)
[2024-07-22 12:44] LABS: Prostate Specific Antigen Scr 0.12 ng/mL (<0.05-4.0)
[2024-07-22 12:46] LABS: Albumin Level 4.2 g/dL (3.5-5.0); Alkaline Phosphatase 77 U/L (39-117); Anion Gap 11 (12-20); Aspartate Amino Transferase 45 U/L (5-37); Bilirubin Total 0.5 mg/dL (0.0-1.0); Blood Urea Nitrogen 15 mg/dL (9-16); Calcium 9.5 mg/dL (8.4-10.2); Carbon Dioxide 30 mmol/L (22-29); Chloride 104 mmol/L (96-108); Cholesterol 151 mg/dL (<200); Estimated Glomerular Filt Rate > 60; Glucose Random 97 mg/dL (60-115); HDL Cholesterol 53 mg/dL (>40); LDL Cholesterol Calculated 82 mg/dL (<100); Potassium 4.1 mmol/L (3.3-5.1); Sodium 141 mmol/L (135-145); Total Protein 7.7 g/dL (6.5-8.0); Triglycerides 81 mg/dL (<150)
[2024-07-22 13:04] LABS: Alanine Aminotransferase 32 U/L (0-40)
[2024-07-22 13:18] LABS: Ferritin 82 ng/mL (20-250)
== END 2024-07-22 10:10 | disposition home or self-care (01) ==
LOC: HO.10HDL 10:09
PROVIDERS: Visit Provider Internal Medicine
DX: D50.8 Other iron deficiency anemias (principal); F10.21 Alcohol dependence, in remission; I10 Essential (primary) hypertension; I85.01 Esophageal varices with bleeding; K70.30 Alcoholic cirrhosis of liver without ascites; N40.0 Benign prostatic hyperplasia without lower urinary tract symptoms; Z12.5 Encounter for screening for malignant neoplasm of prostate
CPT/HCPCS: 36415; 80053; 80061; 82728; 84153; 85025

== ENCOUNTER 2024-08-01 12:35 | Emergency (ER) | payer MEDICARE, MEDICAID, SELFPAY ==
--- NOTE | ~2024-08-01 | XR_ITS ---
EXAMINATION: XR WRIST, LEFT 4 view CLINICAL INFORMATION: pain COMPARISON: None available. TECHNIQUE: PA, lateral, and oblique and scaphoid spot views of the left wrist. FINDINGS: Marginal osteophyte is present involving the distal ulna at the distal radioulnar joint. Otherwise, joint spaces are preserved. There is no joint diastases or malalignment. No fracture line or cortical offset is apparent. XR/XR wrist LT min 3V IMPRESSION: Mild distal radioulnar joint osteophytes. No fracture is evident. If the patient has snuffbox tenderness, scaphoid fractures may be occult, in which case, follow-up x-rays in 7-10 days. Electronically signed by: Attila Thomason MD 08/01/2024 01:36 PM EDT
[2024-08-01 13:16] VITALS: BP 140/73; PULSE 66; RESP 18; TEMP 36.2; O2SAT 98; BMI 32.3
--- NOTE | 2024-08-01 13:17 | ED_ITS ---
HPI - Extremity Injury (Upper) General Chief Complaint: Extremity Injury, Upper Stated Complaint: Left Wrist Pain Time Seen by Provider: 08/01/24 14:01 Source: patient and RN notes reviewed Mode of arrival: ambulatory Limitations: no limitations History of Present Illness ED Provider: Dolores Hinojosa PA-C [facility] narrative: This is a [id number]-male, no known medical problems, who presents to the ER with complaints of left wrist pain x 3 months, pain worsening over the last several weeks. Pain worsens with movement. No known injury or trauma. 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 He denies any numbness or tingling going into his digits. No previous injury, or pain prior to this. He is right-hand dominant. He denies taking any medications to treat his current symptoms. Den ies any chest pain or shortness of breath. No other complaints or concerns at this time. MD complaint: injury to: left and wrist Other injuries: none Handedness: right Severity: moderate Relieving factors: movement Associated symptoms: denies other symptoms Related Data Previous Rx's ?Medication ?Instructions ?Recorded cyclobenzaprine 5 mg tablet 5 mg PO TID PRN muscle spasm #10 01/28/23 tabs ibuprofen 600 mg tablet 600 mg PO Q6H PRN pain #20 tabs 01/28/23 lidocaine 5 % topical patch 1 patch topical DAILY #15 ea 01/28/23 Allergies Allergy/AdvReac Type Severity Reaction Status Date / Time No Known Allergies Allergy Verified 08/01/24 13:18 ÓSCAR [employer]OR Allergy Unknown COUGH Uncoded 11/26/18 00:00 Review of Systems Review of Systems: Yes all other systems are reviewed and are negative Constitutional: Constitutional: Reports as per [facility] Social History Social History Advance Directives: No Advance Directives Information Provided: Yes Physical Exam Vital Signs: Vital Signs: Last Vital Signs Temp 97.2 F 08/01/24 14:51 Pulse 66 08/01/24 14:51 Resp 18 08/01/24 14:51 BP 140/73 H 08/01/24 14:51 Pulse Ox 98 08/01/24 14:51 O2 Del Method Room Air 08/01/24 14:51 BMI result Body Mass Index 32.3 Const: Other: General: Awake, alert, and oriented X3. No acute distress. HEENT: Normal inspection CVS: Normal heart rate and rhythm. Pulses normal. Respiratory: No respiratory distress Skin: Warm, dry, no rashes noted to exposed skin. Normal skin color. Normal skin turgor. Extremities: Left wrist with no obvious bony deformity or swelling. No overlying erythema or edema. Negative Tinel's. Full ROM. Strong radial pulse. Wrist is well perfused. Diffuse tenderness throughout. Neuro: Oriented X 3. No motor deficit. No sensory deficit. Medical Decision Making Medical Decision Making [facility] Narrative: This is a 59-year-old male who presents emergency department with complaints of left wrist pain for the last 3 months. On arrival, patient mildly hypertensive at 140/73, all other vital signs within normal limits. Left wrist with no obvious bony deformity or swelling. 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 He is right-hand dominant. X-rays were obtained revealing mild distal radioulnar joint osteophytes. I discussed this with patient. Advised to follow-up with Orthopedics. Given wrist splint for comfort. Advised to take ibuprofen and or Tylenol as needed for pain. He understands and agrees with plan. Patient stable for discharge. Differential Diagnosis Differential Diagnoses: The differential diagnosis associated with the presentation includes Strain, sprain, contusion, fracture, carpal tunnel Radiology Impression Discussion of test interpretation with radiology: I have reviewed the radiologist's reading. Radiologist Impression: FINDINGS: Marginal osteophyte is present involving the distal ulna at the distal radioulnar joint. Otherwise, joint spaces are preserved. There is no joint diastases or malalignment. No fracture line or cortical offset is apparent. XR/XR wrist LT min 3V IMPRESSION: Mild distal radioulnar joint osteophytes. No fracture is evident. If the patient has snuffbox tenderness, scaphoid fractures may be occult, in which case, follow-up x-rays in 7-10 days. Electronically signed by: Attila Thomason MD 08/01/2024 01:36 PM EDT Dictated By: Attila Thomason MD Discharge Plan Discharge Clinical Impression: Wrist pain, left Patient Disposition: Home, Self-Care Instructions: Wrist Injury (ED), Arthralgia (ED) Additional Instructions: You were seen in the emergency department due to wrist pain. Your x-ray shows degenerative changes, otherwise no broken bones. Follow-up with the process safety specialist call today to make an appointment. Please use wrist splint as needed for support. Gentle range of motion, heat or ice, and alternate between ibuprofen and or Tylenol as needed for pain can help with your symptoms. If any new or worsening symptoms occur including but not limited to inability to move your wrist, high fevers, please seek emergent care Prescriptions: No Action cyclobenzaprine 5 mg tablet 5 mg PO TID PRN (Reason: muscle spasm) Qty: 10 0RF ibuprofen 600 mg tablet 600 mg PO Q6H PRN (Reason: pain) Qty: 20 0RF lidocaine 5 % adhesive patch,medicated 1 patch topical DAILY Qty: 15 0RF Rx Instructions: leave on most painful area for up to 12 hrs Referrals: [facility] [Provider Group] Interventions: ED Discharge Assessment Last Done: 08/01/24 14:51 Discharge Date/Time: 08/01/24 14:51 Print Language: Vincentian
[2024-08-01 14:51] VITALS: BP 140/73; PULSE 66; RESP 18; TEMP 36.2; O2SAT 98
--- OUTSIDE RECORDS SUMMARY | 2024-08-01 16:01 | XMS_ITS | Encounter Summary ---
Author Organization [employer] Address [address] [place] [address] [address] [place] [address] Care Team Providers Care Meatcutter Name Role Phone Unavailable Primary Care Provider Unavailabl e Reason for Visit * Reason Comments Dentures Deliver lower partia l Encounter Details Date Type Department Care Team (Late st Contact Info) Description 07/27/2024 9:00 AM EDT Office Visit [facility] [address] [place] [address] Mynor Ramachandran [address] [place] [address] Social History Tobacco Use Types Packs/Day Years Used Date Smoking Tobacco: Never Passive Smoke Exposure: Never Smokeless Tobacco: Never Alcohol Use Standard Drinks/Week Comments Defer 0 (1 standard drink = 0.6 oz pur e alcohol) Sex and Gender Information Value Date Recorded Sex Assigned at Male 08/07/2023 9:01 AM EDT Legal Sex Male 8:58 AM EDT Gender Identity Male 08/07/2023 9:01 AM EDT Sexual Orientation Choose not to disclose 2023 9:01 AM EDT documented as of this encounter Progress Notes * Mynor Ramachandran - 07/27/2024 9:00 AM EDT Dental procedures in this visit [id number] - MANDIBULAR PARTIAL DENTURE - RESIN BASE (INCLUDING, RETENTIVE/CLASPING MATERIALS, RESTS, AND TEETH) 30,19 (Completed) Service provider: Mynor Ramachandran Billing provider: Irene Turner DDS Patient ID: Michelet Aguilar is a 59 y.o. male. Time Out: Date: 07/27/2024 Location: [facility] Tooth: Mandible Procedure: Dentures Verified the above with patient, orthopedic physician assistant, and provider. Confirmed via patient's chart, intraorally and by radiographs. Associate Sales Representative: not applicable Lower acrylic partial denture insertion done by Dr. Mynor Ramachandran Medical history: Reviewed in EHR Vitals: There were no vitals taken for this visit. Allergies: Reviewed in EHR Medications: Reviewed in EHR - Lower acrylic partial denture insertion done. - Bite checked with articulating paper - Necessary adjustments made. - Denture maintenance kit and instructions given to patient. - Patient recalled after 48 hours for post denture insertion follow up. - Patient given instructions for maintenance of denture. - Patient demonstrated how to insert the dentures and take them out. Patient satisfied, left in stable condition NV: follow up after 48 hours. Provider: Dr. Mynor Ramachandran Ritual Circumciser: Sydnee Tan Supervising Dentist: Dr. Turner * Irene Turner DDS - 07/27/2024 9:00 AM EDT I have reviewed the documentation and dental procedures completed by the rendering provider, Mynor Ramachandran DDS, and approve their chart entries for this visit. MADHU Reyes DDS documented in this encounter Plan of Treatment Upcoming Encounters Date Type Department Care Team (Late st Contact Info) Description 08/05/2024 10:00 AM EDT Office Visit [facility] [address] [place] [address] Mynor Ramachandran [address] [place] [address] 09/08/2024 10:00 AM EDT Office Visit [facility] [address] [place] [address] Shadia Campbell Scheduled Orders Name Type Priority Associated Diagnoses Orde r Schedule 14 B(V) 14 B(V) RESIN-BASED COMPOSITE - 1 SURF, POSTERIOR Dental Routine 1 Occurrences starting 07/27/2024 LR LR PERIODONTAL SCALING AND ROOT PLANING - 4 OR MORE TEETH PER QUADRANT Dental Routine [address] arting 07/27/2024 UR UR PERIODONTAL SCALING AND ROOT PLANING - 4 OR MORE TEETH PER QUADRANT Dental Routine [address] arting 07/27/2024 UL UL PERIODONTAL SCALING AND ROOT PLANING - 4 OR MORE TEETH PER QUADRANT Dental Routine [address] arting 07/27/2024 LL LL PERIODONTAL SCALING AND ROOT PLANING - 4 OR MORE TEETH PER QUADRANT Dental Routine [address] arting 07/27/2024 documented as of this encounter Procedures Procedure Name Priority Date/Time Associated Diagnosis Comments 30,19 MANDIBULAR PARTIAL DENTURE - RESIN BASE (INCLUDING, RETENTIVE/CLASPING MATERIALS, RESTS, AND TEETH) Routine 07/27/2024 9:00 AM EDT documented in this encounter Visit Diagnoses Not on filedocumented in this encounter
== END 2024-08-01 14:51 | disposition home or self-care (01) ==
LOC: HO.ED 14:46
PROVIDERS: Emergency Provider Emergency Medicine Emergency Medical Services; PCP Internal Medicine
DX: M25.532 Pain in left wrist (principal); R20.0 Anesthesia of skin
CPT/HCPCS: 73110; 99283

== ENCOUNTER → 2024-08-01 13:20 | Outpatient (BNV) | payer MEDICARE, MEDICAID, SELFPAY | PROVIDERS: Emergency Provider Emergency Medicine Emergency Medical Services; Visit Provider Radiology Diagnostic Radiology | DX: M25.722 Osteophyte, left elbow (principal) | CPT/HCPCS: 73110 ==